=== PATIENT | male | born 1960 | race Caucasian/White ===

== ENCOUNTER 2020-09-18 07:51 | Inpatient (IN) ==
[2020-09-18] MEDS ORDERED: methylPREDNISolone SOD SUCC 125 MG/2 ML VIAL IV ONE (08:31)
--- NOTE | 2020-09-18 08:42 | Emergency Department Note ---
SOB HPI General Chief Complaint: Shortness of Breath/Dyspnea Stated Complaint: SOB, tongue swelling Time Seen by Provider: 09/18/20 08:10 Source: patient Mode of arrival: wheelchair Limitations: no limitations History of Present Illness HPI Narrative: Narrative: 60-year-old male presents to the emergency department complaining of difficulty breathing. Patient states that he has had swelling of his lips and tongue from lisinopril which began greater than 1 month ago. He stopped the lisinopril greater than 1 month ago. He has been followed by his physician as well as by ear nose and throat because of the atypical nature of this edema. This morning he was unable to swallow. His breathing became very labored. He became worse and he developed wheezing. He presented to the emergency department. He rated his discomfort as a 10 out of 10, and stated it was constant. Nothing made it better or worse. It was associated with the swelling that he is had but now it was worse. There was no radiation. There was associated wheezing. Patient has diabetes, hypertension, antidepressants. His last p.o. intake was at 1900. Related Data Home Medications Medication Instructions Recorded Confirmed citalopram 20 mg PO DAILY 09/18/20 09/18/20 insulin aspart U-100 [Novolog See Protocol SUBCUT ACHS 09/18/20 09/18/20 U-100 Insulin aspart] insulin glargine [Lantus Solostar 35 unit SUBCUT DAILY 09/18/20 09/18/20 U-100 Insulin] omeprazole 40 mg PO DAILY 09/18/20 09/18/20 Allergies Allergy/AdvReac Type Severity Reaction Status Date / Time lisinopril AdvReac Severe Swelling Verified 09/18/20 07:52 Review of Systems ROS ROS Narrative: Narrative: Constitutional: Denies fever Eyes: Denies eye pain ENT ED: Reports throat pain (With swallowing.) and dysphagia; Denies ear pain and rhinorrhea Cardiovascular: Denies chest pain Respiratory: Reports shortness of breath Gastrointestinal: Denies abdominal pain, nausea and vomiting Genitourinary: Denies dysuria Musculoskeletal: Denies back pain Integumentary: Denies rash Neurological: Denies headache Psychiatric: Reports depression Hematological/Lymphatic: Denies easy bleeding Allergic/Immunologic: Reports facial swelling PFSH Narrative Patient History Narrative: Narrative: Medical/Surgical/Family History All Active Problems Compromised airway (Acute) Depression (Acute) Essential (primary) hypertension (Acute) Type 1 diabetes mellitus (Acute) 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) (Acute) Social History Smoking Status: Never smoker Exam Narrative Narrative: Narrative: General Limitations: no limitations General appearance: Present alert, anxious and in distress Head Head: Present atraumatic and normocephalic Eye Eye: Present normal appearance and EOMI ENT ENT: Present mucous membranes moist and other (Some edema of the tongue and lips.) Neck Neck: Present full ROM and trachea midline Respiratory Respiratory: Present normal lung sounds bilaterally and respiratory distress; Absent wheezes (At the time I evaluated him.) Cardiovascular Cardiovascular: Present regular rate and normal rhythm Adbominal Abdominal: Present soft; Absent tenderness Extremities Extremities: Present full ROM Neurological Neurological: Present alert and oriented X3 Psychiatric Psychiatric: Present normal affect and normal mood Skin Skin: Present warm (WNL) and dry Course Consultations Consultation #1: Consulted anesthesiology. He came to the bedside and evaluated the patient. Did not feel the patient required intubation at this time. Time: 08:10 Consultation #2: Consult to the hospitalist for admission.10:10 Hospitalist called back. we discussed. pt. will be brought in house on observation. Time: 08:42 Vital Signs Vital signs: Vital Signs Temperature 97.4 F 09/18/20 07:53 Pulse Rate 96 H 09/18/20 07:53 Respiratory Rate 18 09/18/20 07:53 Blood Pressure 156/85 09/18/20 07:53 Pulse Oximetry (%) 96 09/18/20 07:53 Temperature 97.3 F 09/18/20 16:00 Pulse Rate 70 09/18/20 14:14 Respiratory Rate 16 09/18/20 16:00 Blood Pressure 138/72 09/18/20 16:00 Pulse Oximetry (%) 94 09/18/20 16:00 [facility] Narrative Medical decision making narrative: Narrative: 60-year-old male presents emerged department describing a condition like angioedema but it having been present for 1 month and then this morning getting substantially worse causing airway compromise. Differential diagnosis includes DAVE inhibitor induced angioedema, hereditary angioedema, allergic reaction, pending respiratory failure, other. Patient had a Mallampati score of 4 though with the tongue blade examination of the mouth I was able to see the uvula and posterior pharynx.. Uvula was not edematous. I considered intubation but the patient's oxygenation was adequate by pulse ox and his respiratory ate was acceptable. He managed his secretions without difficulty. I contacted anesthesia who graciously came down to the emerge department to evaluate the patient personally. For a potentially very challenging intubation it is better to have multiple people assess in the best person try the initial intubation. I discussed with the pharmacist new medications that are used for angioedema. None of them are available in this hospital and they require special order. We also discussed the atypical nature of this angioedema leading to questions of whether that was truly the cause. In discussion with anesthesiologist it was felt safest for the patient for the patient to be admitted to the hospital and kept here in detail the course of his airway compromise elucidated itself. I contacted the hospitalist who graciously admitted the patient for further care and evaluation. His blood sugar was noted to be high at 220 and the hospitalist will manage that. CBC and Chem-7 were otherwise unremarkable. Chest x-ray revealed platelike atelectasis but no acute infiltrates. Lab Data Result diagrams: 09/18/20 08:50 09/18/20 08:50 Labs: Lab Results 09/18/20 09/18/20 09/18/20 Range/Units 08:50 08:50 08:50 WBC 6.6 (4.5-11.0) K/mcL RBC 4.86 (4.50-5.90) M/mcL Hgb 14.5 (13.5-16.5) g/dL Hct 42.2 (41.0-55.0) % MCV 86.8 (80.0-100.0) fL MCH 29.8 (26.0-34.0) pg MCHC 34.4 (31.0-36.0) g/dL RDW 12.8 (11.5-14.5) % Plt Count 242 (140-440) K/mcL MPV 10.1 (7.4-10.4) fL Neut % (Auto) 64.7 (38.0-78.0) % Lymph % (Auto) 24.0 (15.0-49.0) % [place] % (Auto) 7.4 (1.0-12.0) % Eos % (Auto) 3.3 (0.0-7.0) % Baso % (Auto) 0.6 (0.0-2.0) % Lymph # (Auto) 1.59 (1.50-4.80) K/mcL [place] # (Auto) 0.49 (0.10-0.90) K/mcL Eos # (Auto) 0.22 (0.00-0.70) K/mcL Baso # (Auto) 0.04 (0.00-0.20) K/mcL Absolute Neutrophils 4.28 (1.80-8.00) K/mcL Sodium 138 (133-145) mmol/L Potassium 4.7 (3.3-5.1) mmol/L Chloride 104 (96-108) mmol/L Carbon Dioxide 23 (22-30) mmol/L Anion Gap 11.0 (8.0-16.0) BUN 8 (8-23) mg/dL Creatinine 1.0 (0.7-1.2) mg/dL GFR Calculation 81 Glucose 220 H (70-105) mg/dL Hemoglobin A1c 6.6 H (4.0-6.0) % Hgb Estim Average Glucose 143 mg/dL Calcium 9.2 (8.6-10.4) mg/dL Total Bilirubin 0.5 (0.1-1.0) mg/dL AST 24 (<40) U/L ALT 19 (<40) U/L Alkaline Phosphatase 113 (39-117) U/L Total Protein 6.9 (5.9-8.4) gm/dL Albumin 3.5 (3.2-5.2) gm/dL Globulin 3.4 (2.2-3.7) gm/dL Albumin/Globulin Ratio 1.0 (1.0-2.3) ED POC Tests ED POC Tests: BRANDO - SARS Antigen Negative CC TIME Critical Care Time Critical Care Time: Yes Total Critical Care Time: 40 Attestation: The patient had potential critical airway compromise which would necessitate emergent intubation under difficult conditions. Discharge Plan Patient/Caregiver Discharge Instructions Pt seen by BILLING CLINICIAN/PA only: No Clinical Impression: Compromised airway Patient Disposition: Xfer As Inpt ([facility]) Condition: Serious Discharge Date/Time: 09/18/20 12:09
--- NOTE | 2020-09-18 08:45 | XRay Report ---
INDICATION: Chest pain TECHNIQUE: AP portable chest x-ray COMPARISON: None FINDINGS: Lungs:Linear densities at both lung bases consistent with atelectasis or scarring. No parenchymal consolidation Heart, vascular:No significant cardiomegaly. Pulmonary vascularity is normal. No pulmonary edema or pulmonary congestion Mediastinum, santos:No mediastinal widening. No hilar mass Pleura:No pleural fluid. No pleural-based mass or calcification Skeletal:Negative. IMPRESSION: 1. Findings consistent with bibasilar atelectasis 2. Otherwise negative Interpreted and Authenticated by: Patrick Lawrence 09/18/20
[2020-09-18 09:20] LABS: Basophils # (Auto) 0.04 K/mcL (0.00-0.20); Basophils % (Auto) 0.6 % (0.0-2.0); Eosinophils # (Auto) 0.22 K/mcL (0.00-0.70); Eosinophils % (Auto) 3.3 % (0.0-7.0); Hematocrit 42.2 % (41.0-55.0); Hemoglobin 14.5 g/dL (13.5-16.5); Lymphocytes # (Auto) 1.59 K/mcL (1.50-4.80); Mean Cell Volume 86.8 fL (80.0-100.0); Mean Corpuscular HGB Conc 34.4 g/dL (31.0-36.0); Mean Platelet Volume 10.1 fL (7.4-10.4); Monocytes # (Auto) 0.49 K/mcL (0.10-0.90); Monocytes % (Auto) 7.4 % (1.0-12.0); Neutrophils % (Auto) 64.7 % (38.0-78.0); Platelet Count 242 K/mcL (140-440); RBC 4.86 M/mcL (4.50-5.90); Red Cell Distribution Width 12.8 % (11.5-14.5); WBC 6.6 K/mcL (4.5-11.0)
[2020-09-18 09:45] LABS: ALT/SGPT 19 U/L (<40); AST/SGOT 24 U/L (<40); Albumin 3.5 gm/dL (3.2-5.2); Alkaline Phosphatase 113 U/L (39-117); Bilirubin,Total 0.5 mg/dL (0.1-1.0); Blood Urea Nitrogen 8 mg/dL (8-23); Calcium 9.2 mg/dL (8.6-10.4); Carbon Dioxide 23 mmol/L (22-30); Chloride 104 mmol/L (96-108); Globulin 3.4 gm/dL (2.2-3.7); Glomerular Filtration Rate 81; Glucose 220 mg/dL (70-105)
--- NOTE | 2020-09-18 10:43 | Internal Med History&Physical ---
HPI History of Present Illness Patient information: Note initiated : 09/18/20 at 10:35 am Service Date, if different from initiated Date: [] Patient: Jose L Carter a 60 y/o M admitted on for SOB, tongue swelling. Chief Complaint: [Angioedema from Lisinopril] History of present illness: Mr. Carter is a 60 year old M history of type 1 diabetes mellitus, essential hypertension, depressions, presenting with 1 day history of difficulty breathing, lips swelling, and difficulty swallowing. Patient was taking lisinopril for hypertension and he was being diagnosed with angioedema from lisinopril about a month ago. He has not been taking lisinopril or any other DAVE inhibitor ever since. Today when he woke up from sleep he noticed increased difficulty breathing, lip swelling, and difficulty swallowing. As a result, he decided to come to our ED for further evaluation and treatments. Vital signs upon ER presentations were completely normal including oxygen saturation and rate of breathing. Labs, pea-sized slightly elevated blood glucose to 220, were also largely unremarkable. Physical examinations remarkable for airway examination of Mallampati class IV. No drooling noticed. Lung examinations shows clear breath sound in all lung schultz. Mental status intact. Constitutional Constitutional: Absent chills, excessive sweating, fatigue, fever(s) and weakness EENT Eyes: Absent blurry vision, change in vision, loss of vision and other visual disturbances Ears: Absent decreased hearing and tinnitus Nose, mouth and throat: Present tongue swelling; Absent abnormal hearing, dry mouth, headache(s), nasal congestion and sore throat Additional comments: lips swelling Dysphagia Cardiovascular Cardiovascular: Absent chest pain, chest pain at rest, edema, irregular heart rhythm and palpatations Respiratory Respiratory: Present dyspnea; Absent cough, wheezing and stridor Gastrointestinal Gastrointestinal: Absent abdominal pain, constipation, diarrhea, nausea and vomiting Musculoskeletal Musculoskeletal: Absent back pain, deformity, limited range of motion, muscle cramps, muscle weakness and numbness Integumentary Integumentary: Absent lesions, rash and wounds Neurological Neurological: Absent focal weakness, headache(s) and numbness Psychiatric Psychiatric: Absent anxiety, depression and hallucinations PFSH PFSH All Active Problems (Updated 09/18/20 @ 10:41 by Uche Worrell MD) Depression (Acute) Essential (primary) hypertension (Acute) Type 1 diabetes mellitus (Acute) 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) (Acute) MEDS/ALLERGIES Home Medications and Allergies Allergies Allergy/AdvReac Type Severity Reaction Status Date / Time lisinopril AdvReac Severe Swelling Verified 09/18/20 07:52 EXAM Constitutional Vitals: Temp Pulse Resp BP Pulse Ox 36.3 C 70 16 117/66 93 09/18/20 07:53 09/18/20 10:21 09/18/20 08:10 09/18/20 10:01 09/18/20 10:21 General appearance: cooperative and no acute distress Head Head exam: Present atraumatic and normocephalic Eye Eye exam: Present EOMI and PERRL ENT ENT exam: Present mucous membranes moist and normal external ear exam; Absent normal exam Additional comments: Mallampati class IV airway. Slightly swollen lips. Neck Neck exam: Present normal inspection; Absent lymphadenopathy, tenderness and thyromegaly Respiratory Respiratory exam: Absent accessory muscle use, respiratory distress and wheezes Cardiovascular Cardiovascular exam: Present normal rate and rhythm; Absent JVD GI/Abdominal GI/Abdominal exam: Present normal bowel sounds and soft; Absent organomegaly and tenderness Rectal Rectal exam: Present deferred Extremities Exam Extremities exam: Present full ROM, normal capillary refill and normal inspection; Absent tenderness Neurological Exam Neurological exam: Present alert, CN II-XII intact and oriented X3; Absent motor sensory deficit Psychiatric Psychiatric exam: Present normal affect and normal mood; Absent anxious and depressed Skin Skin exam: Present dry and intact DATA Data Completed and Pending Labs: Labs from last 24 hours 09/18/20 09/18/20 08:50 08:50 WBC 6.6 RBC 4.86 Hgb 14.5 Hct 42.2 MCV 86.8 MCH 29.8 MCHC 34.4 RDW 12.8 Plt Count 242 MPV 10.1 Neut % (Auto) 64.7 Lymph % (Auto) 24.0 [place] % (Auto) 7.4 Eos % (Auto) 3.3 Baso % (Auto) 0.6 Lymph # (Auto) 1.59 [place] # (Auto) 0.49 Eos # (Auto) 0.22 Baso # (Auto) 0.04 Absolute Neutrophils 4.28 Sodium 138 Potassium 4.7 Chloride 104 Carbon Dioxide 23 Anion Gap 11.0 BUN 8 Creatinine 1.0 GFR Calculation 81 Glucose 220 H Calcium 9.2 Total Bilirubin 0.5 AST 24 ALT 19 Alkaline Phosphatase 113 Total Protein 6.9 Albumin 3.5 Globulin 3.4 Albumin/Globulin Ratio 1.0 A/P Assessment and plan (1) Angioedema of intestine due to angiotensin converting enzyme inhibitor (DAVE- I): Status: Acute (2) Type 1 diabetes mellitus: Status: Acute (3) Essential (primary) hypertension: Status: Acute (4) Depression: Status: Acute Narrative A/P Narrative: Assessment and plans: 1. Observation med surg FFP Solu-medrol 125mg IV q6hr Benadryl 100mg IV q6hr No DAVE-i 2. T1DM: HgA1c Lantus Medium dose insulin Lispro AC HS Accu Chek AC HS Hypoglycemia protocol Diabetic diet 3. Essential HTN: Currently normotensive No DAVE-i Consider other class of antihypertensives such as diuretics or calcium channel blockers if needed 4. Depression: Continue home regimen of antidepressants GI: not currently indicated DVT ppx: Lovenox Code status: Full Prognosis: guarded Disposition: observation med surg Time Spent With Patient Time: Total time spent is greater than 50% in coordination of care (as documented) at patient's floor/unit and/or counseling patient: Total time spent with greater than 50% in coordination of care (as documented) at patient's floor/unit and/or counseling patient:: 15 - 24 minutes
[2020-09-18] MEDS ORDERED: IOPAMIDOL 100 ML BOTTLE IV ONE (12:10)
[2020-09-18] MEDS ORDERED: DEXTROSE 50% 50 ML VIAL IV PRN (14:14)
[2020-09-18] MEDS ORDERED: ZOLPIDEM 5 MG TABLET PO PRN (14:14)
[2020-09-18] MEDS ORDERED: 0.9 % SODIUM CHLORIDE 250 ML IV SCH (14:14)
[2020-09-18] MEDS ORDERED: diphenhydrAMINE 50 MG/ML VIAL IV PRN (14:14)
[2020-09-18] MEDS ORDERED: ONDANSETRON 4 MG/2 ML VIAL IV PRN (14:14)
[2020-09-18] MEDS ORDERED: ACETAMINOPHEN 325 MG TABLET PO PRN (14:14)
[2020-09-18] MEDS ORDERED: DEXTROSE 31 GM ORAL.SUSP PO PRN (14:14)
[2020-09-18] MEDS: INSULIN LISPRO 1 UNIT/0.01 ML UNIT SQ SCH ×3 (14:54→21:31)
[2020-09-18] MEDS: 0.9 % SODIUM CHLORIDE 10 ML SYRINGE IV SCH ×2 (14:55→21:22)
[2020-09-18 15:05] LABS: Hemoglobin A1C 6.6 % Hgb (4.0-6.0)
[2020-09-18] MEDS: methylPREDNISolone SOD SUCC 125 MG/2 ML VIAL IV SCH ×2 (15:10→21:31)
[2020-09-18] MEDS ORDERED: SENNOSIDES 1 TABLET PO SCH (21:00)
[2020-09-18] MEDS ORDERED: DOCUSATE SODIUM 100 MG CAPSULE PO SCH (21:00)
[2020-09-18] MEDS ORDERED: NON FORMULARY MEDICATION 1 DOSE MISCELL (Insulin Glargine [Lantus Solostar U-100 Insulin] SUB-Q SCH (21:00)
[2020-09-19] MEDS: methylPREDNISolone SOD SUCC 125 MG/2 ML VIAL IV SCH (05:46)
[2020-09-19] MEDS: 0.9 % SODIUM CHLORIDE 10 ML SYRINGE IV SCH ×3 (05:47→20:33)
[2020-09-19] MEDS: INSULIN LISPRO 1 UNIT/0.01 ML UNIT SQ SCH ×4 (07:22→20:32)
[2020-09-19] MEDS ORDERED: OMEPRAZOLE 20 MG CAPSULE PO SCH (07:30)
[2020-09-19] MEDS ORDERED: DEXTROSE 31 GM ORAL.SUSP PO PRN ×3 (08:00→11:02)
[2020-09-19] MEDS ORDERED: diphenhydrAMINE 50 MG/ML VIAL IV SCH ×2 (08:00→11:02)
[2020-09-19] MEDS ORDERED: DEXTROSE 50% 50 ML VIAL IV PRN ×2 (08:00→08:20)
[2020-09-19] MEDS ORDERED: ONDANSETRON 4 MG/2 ML VIAL IV PRN (08:00)
[2020-09-19] MEDS ORDERED: LORazepam 2 MG/ML VIAL IV PRN ×2 (08:00→11:52)
[2020-09-19] MEDS ORDERED: ACETAMINOPHEN 325 MG TABLET PO PRN ×2 (08:00→11:02)
[2020-09-19] MEDS ORDERED: LORazepam 2 MG/ML VIAL IV ONE (08:00)
--- NOTE | 2020-09-19 08:54 | Cat Scan Report ---
INDICATION: Concern for upper airway obstruction/edema. COMPARISON: None TECHNIQUE: Axial contrast enhanced images through the neck. Sagittally and coronally reformatted images. 80ml Isovue 370 injected intravenously. FINDINGS: Vascular:Common carotid arteries and internal carotid arteries are patent bilaterally. Internal jugular veins are patent Lymphatic:No pathologic lymphadenopathy. Internal jugular chains are negative. No supraclavicular adenopathy Mucosa:No mucosal mass. Glottis and epiglottis are normal. There is no subglottic edema Nasopharynx, oropharynx, hypopharynx are negative. No peritonsillar mass or evidence for abscess Salivary glands:Parotid glands and submandibular glands are negative bilaterally. No focal mass. No evidence for sialoadenitis. Soft Tissue:No solid or cystic soft tissue mass. No abscess. No focal abnormality Lung Apices:No pulmonary parenchymal density. No pneumothorax. No focal abnormality. Thyroid:Negative. No detectable nodule Paranasal sinuses:There is mucosal thickening in the inferior maxillary sinuses bilaterally. No discrete mass. There is no air-fluid level Musculoskeletal:Negative cervical spine. No fracture. No lytic lesion. IMPRESSION: Negative CT scan of the soft tissues of the neck. The exam was performed using radiation dose optimization techniques including, but not limited to, automated exposure control, adjustment of the mA and/or kV according to patient size and use of iterative reconstruction technique. Interpreted and Authenticated by: Patrick Lawrence 09/19/20
[2020-09-19] MEDS ORDERED: DOCUSATE SODIUM 100 MG CAPSULE PO SCH (09:00)
[2020-09-19] MEDS ORDERED: CITALOPRAM 20 MG TABLET PO SCH ×2 (09:00)
[2020-09-19] MEDS ORDERED: INSULIN GLARGINE, HUMAN 1 UNIT/0.01 ML SQ SCH ×5 (09:00→21:00)
[2020-09-19] MEDS ORDERED: ENOXAPARIN 40 MG/0.4 ML SYRINGE SQ SCH ×2 (09:00)
[2020-09-19] MEDS ORDERED: 0.9 % SODIUM CHLORIDE 1,000 ML IV ONE (09:53)
[2020-09-19] MEDS ORDERED: LIDOCAINE HCL/PF 100 MG/5 ML SYRINGE IV ONE (10:00)
[2020-09-19] MEDS ORDERED: PHENYLephrine 1 MG/10 ML SYRINGE (ANEST) ONE (10:00)
[2020-09-19] MEDS ORDERED: KETAMINE 10 MG/ML ML IV ONE (10:00)
[2020-09-19] MEDS ORDERED: PROPOFOL 200 MG/20 ML VIAL IV ONE (10:00)
[2020-09-19] MEDS ORDERED: ROCURONIUM 10 MG/ML ML IV ONE (10:00)
[2020-09-19] MEDS ORDERED: KETAMINE 50 MG/ML Syringe (ANEST) ONE (10:00)
[2020-09-19] MEDS ORDERED: 0.9 % SODIUM CHLORIDE 250 ML IV SCH ×3 (10:15→11:02)
[2020-09-19] MEDS ORDERED: DEXMEDETOMIDINE 400 MCG in PREMIX 1 BAG IV SCH ×2 (10:15→11:02)
[2020-09-19] MEDS ORDERED: fentaNYL 100 MCG/2 ML VIAL IV PRN (10:20)
[2020-09-19] MEDS ORDERED: fentaNYL 100 MCG/2 ML VIAL IV SCH (10:30)
--- NOTE | 2020-09-19 10:59 | XRay Report ---
INDICATION: Verify endotracheal tube and nasogastric placement TECHNIQUE: AP portable semiupright chest x-ray COMPARISON: None FINDINGS:Endotracheal tube tip 5 cm above the rhonda. There is an endotracheal tube with its tip in the stomach Lungs:Bibasilar pulmonary parenchymal density. Appearance is most consistent with atelectasis. Mild pneumonia, especially at the left lung bases are stable. Heart, vascular:No significant cardiomegaly. Pulmonary vascularity is normal. No pulmonary edema or pulmonary congestion Mediastinum, santos:No mediastinal widening. No hilar mass Pleura:Blunting of left costophrenic angle consistent with small left pleural effusion Skeletal:Negative. IMPRESSION: 1. Endotracheal tube and esophagogastric tube is described above 2. Mild bibasilar parenchymal density 3. Blunting of left costophrenic angle Interpreted and Authenticated by: Patrick Lawrence 09/19/20
[2020-09-19] MEDS ORDERED: NOREPINEPHRINE BITARTRATE 8 MG in 0.9 % SODIUM CHLORIDE 242 ML IV PRN (11:00)
[2020-09-19] MEDS ORDERED: IOPAMIDOL 100 ML BOTTLE IV ONE ×2 (11:02→14:04)
[2020-09-19 11:17] LABS: proBNP 122.3 pg/mL (<125.0)
[2020-09-19] MEDS ORDERED: INSULIN LISPRO 1 UNIT/0.01 ML UNIT SQ SCH ×2 (11:30)
[2020-09-19 11:43] LABS: Basophils # (Auto) 0.02 K/mcL (0.00-0.30); Basophils % (Auto) 0.1 % (0.0-2.0); Eosinophils # (Auto) 0 K/mcL (0.00-0.70); Eosinophils % (Auto) 0 % (0.0-7.0); Hematocrit 44.4 % (40.1-51.0); Hemoglobin 15.1 g/dL (13.7-17.5); Lymphocytes # (Auto) 1.32 K/mcL (1.50-4.80); Lymphocytes % (Auto) 8.2 % (15.5-49.0); Mean Cell Volume 88.1 fL (80.0-100.0); Mean Platelet Volume 10.4 fL (7.4-10.4); Monocytes # (Auto) 0.61 K/mcL (0.10-0.90); Monocytes % (Auto) 3.8 % (1.0-12.0); Neutrophils % (Auto) 87.9 % (38.0-78.0); Platelet Count 293 K/mcL (140-440); RBC 5.04 M/mcL (4.63-6.08); Red Cell Distribution Width 12.8 % (11.5-14.5); WBC 16.1 K/mcL (4.5-11.0)
[2020-09-19 11:47] LABS: ALT/SGPT 21 U/L (<40); AST/SGOT 22 U/L (<40); Albumin/Globulin Ratio 1.1 (1.0-2.3); Alkaline Phosphatase 122 U/L (39-117); Bilirubin,Total 0.7 mg/dL (0.1-1.0); Blood Urea Nitrogen 23 mg/dL (8-23); Calcium 9.7 mg/dL (8.6-10.4); Carbon Dioxide 15 mmol/L (22-30); Chloride 99 mmol/L (96-108); Globulin 3.6 gm/dL (2.2-3.7); Glomerular Filtration Rate 65; Glucose 347 mg/dL (70-105)
[2020-09-19] MEDS ORDERED: LABETALOL 5 MG/ML ML IV PRN (11:47)
[2020-09-19] MEDS ORDERED: fentaNYL 100 MCG/2 ML VIAL IV ONE (12:33)
[2020-09-19] MEDS ORDERED: methylPREDNISolone SOD SUCC 125 MG/2 ML VIAL IV SCH ×3 (14:00)
[2020-09-19] MEDS ORDERED: 0.9 % SODIUM CHLORIDE 10 ML SYRINGE IV SCH (14:00)
--- NOTE | 2020-09-19 14:16 | Cat Scan Report ---
INDICATION: Acute respiratory failure COMPARISON: Chest x-ray dated 09/19/2020 TECHNIQUE: Axial images obtained through the chest. 80ml Isovue 370 injected intravenously, and scanning was performed during pulmonary arterial phase. Sagittally and coronally reformatted images were obtained. MIP reformatted images. FINDINGS: There is an endotracheal tube in the trachea. There is an esophagogastric catheter in the stomach Lungs:Bilateral lower lobe parenchymal consolidation. There are air bronchograms. Findings may be due to benign volume loss but pneumonia is possible. Mediastinum, vascular:Main pulmonary artery, right pulmonary artery, left pulmonary artery are negative. No intraluminal filling defects. No lobar, segmental, or subsegmental emboli. Thoracic aorta is negative. No aneurysmal dilatation No pathologic mediastinal or hilar adenopathy Heart:No cardiomegaly. No pericardial effusion. There is mild reflux of contrast material into the inferior vena cava Pleura:No significant pleural effusion. No pleural mass or calcification Axilla, supraclavicular regions, chest wall:No pathologic axillary or supraclavicular adenopathy. Musculoskeletal:Negative thoracic spine. No compression fracture. No lytic lesion. No rib or sternal lesions Upper Abdomen:Incidental note is made of a 10 mm right adrenal nodule. No acute abnormalities IMPRESSION: 1. Negative pulmonary CTA 2. Bilateral lower lobe consolidation. Findings may be due to benign volume loss but pneumonia is possible The exam was performed using radiation dose optimization techniques including, but not limited to, automated exposure control, adjustment of the mA and/or kV according to patient size and use of iterative reconstruction technique. Interpreted and Authenticated by: Patrick Lawrence 09/19/20
--- NOTE | 2020-09-19 14:36 | Internal Med Progress Note ---
SUBJECTIVE Subjective Patient information: Note initiated : 09/19/20 at 2:29 pm Service Date, if different from initiated Date: [] Patient: Jose L Carter a 60 y/o M admitted on 09/19/20 for SOB, tongue swelling. Chief Complaint: [] Interval history: History of present illness: Mr. Carter is a 60 year old M history of type 1 diabetes mellitus, essential hypertension, depressions, presenting with 1 day history of difficulty breathing, lips swelling, and difficulty swallowing. Patient was taking lisinopril for hypertension and he was being diagnosed with angioedema from lisinopril about a month ago. He has not been taking lisinopril or any other DAVE inhibitor ever since. Today when he woke up from sleep he noticed increased difficulty breathing, lip swelling, and difficulty swallowing. As a result, he decided to come to our ED for further evaluation and treatments. Vital signs upon ER presentations were completely normal including oxygen saturation and rate of breathing. Labs, pea-sized slightly elevated blood glucose to 220, were also largely unremarkable. Physical examinations remarkable for airway examination of Mallampati class IV. No drooling noticed. Lung examinations shows clear breath sound in all lung schultz. Mental status intact. 09/19: CT neck with contrast was negative. The patient later developed progressive worsening of respiratory status this morning requiring an intubation by anaesthesia. Anaesthesia remarked that there was no evidence of airway edema noted during intubation, a GlideScope was used for intubation. Post intubation ABG showed severe respiratory acidosis that improved on repeat ABG. Further workup with EKG-sinus tachycardia, troponin-normal, BNP-normal. D-dimer mildly elevated. CTA chest negative for PE but showed bilateral lower lobe consolidations of uncertain etiology but likely benign voluem loss vs pneumonia. Ceftriaxone and Azithromycin started, check procalcitonin and CRP. TTE ordered. Review of systems: shortness of breath Physical Exam Head: Atraumatic, normal inspection. Eyes: normal appearance, no scleral icterus. Neck: full ROM Respiratory: severe respiratory distress. Cardiovascular: tachycardia GI/Abdominal: soft, nontender, no guarding. Extremities: full range of motion, nontender. Neurological: CN II-XII intact, intact motor, intact sensation. Psychiatric: severe anxiety Skin: warm, normal color Constitutional Vitals: Vital Signs Temp Pulse Resp BP Pulse Ox 98.5 F 117 H 20 145/92 96 09/19/20 12:01 09/19/20 12:01 09/19/20 14:00 09/19/20 12:01 09/19/20 14:00 Period Temp Pulse Resp BP Sys/Sewell Pulse Ox Last 24 Hr 97.0 F-98.5 F 75-130 8-31 87-194/64-118 73-98 Intake and Output 09/19/20 09/19/20 09/19/20 05:59 13:59 21:59 Intake Total 240 187 Output Total 620 155 Balance 240 -433 -155 Intake & Output: Intake & Output 09/19/20 09/19/20 09/19/20 05:59 13:59 21:59 Intake Total 240 187 Output Total 620 155 Balance 240 -433 -155 Intake: IV 187 Sodium Chloride 0.9% 1,000 ml @ 158 Wide Open IV BOLUS ONE Rx#: [id number] Precedex 400 Mcg/100 ml 29 Dextrose 400 Mcg In Premix 1 Bag @ 0.2 MCG/KG/HR 4.992 mls/ hr IV .Q20H2M JOY Rx#:[id number] Oral 240 Output: Urine Catheter Amount 620 155 Other: Urine Appearance Clear Clear Urine Color Bright Yellow Bright Yellow # Voids 1 OBJ DATA Labs CBC & Chem 7: 09/19/20 10:21 09/19/20 10:21 Labs: Abnormal Lab Results 09/19/20 09/19/20 09/19/20 10:21 10:21 10:21 WBC 16.1 H Neut % (Auto) 87.9 H Lymph % (Auto) 8.2 L Lymph # (Auto) 1.32 L Absolute Neutrophils 14.13 H D-Dimer 0.68 H Carbon Dioxide 15 L Anion Gap 21.0 H Glucose 347 H Hemoglobin A1c Alkaline Phosphatase 122 H 09/18/20 09/18/20 08:50 08:50 WBC Neut % (Auto) Lymph % (Auto) Lymph # (Auto) Absolute Neutrophils D-Dimer Carbon Dioxide Anion Gap Glucose 220 H Hemoglobin A1c 6.6 H Alkaline Phosphatase Meds: Medications Acetaminophen (Acetaminophen 325 Mg Tablet) 650 mg PO Q6HP PRN; Protocol PRN Reason: Per Pain Protocol/Fever > 101 Citalopram Hydrobromide (Citalopram 20 Mg Tablet) 20 mg PO DAILY JOY Dextrose (Dextrose 50% 50 Ml Vial) 0 ml IV UD PRN PRN Reason: Hypoglycemia Diagnostic Test (Pha) (Accu-Chek 1 Each Strip) 1 each FS [facility] Last Admin: 09/19/20 12:21 Dose: 1 each Documented by: Diphenhydramine HCl (Diphenhydramine 50 Mg/Ml Vial) 25 mg IV Q6HP [facility] Docusate Sodium (Docusate Sodium 100 Mg Capsule) 100 mg PO BID [facility] Enoxaparin Sodium (Enoxaparin 40 Mg/0.4 Ml Syringe) 40 mg SQ DAILY [facility] Fentanyl (Fentanyl 100 Mcg/2 Ml Vial) 25 mcg IV Q30MIN PRN; Protocol PRN Reason: pain Glucose (Dextrose 31 Gm Oral.Susp) 15 gm PO PRN PRN PRN Reason: Hypoglycemia Norepinephrine Bitartrate 8 mg (/ Sodium Chloride) 250 mls @ 18.75 mls/hr IV Q14H PRN; Protocol PRN Reason: TITRATE TO KEEP MAP > 65 Dexmedetomidine HCl 400 mcg/ (Premix) 100 mls @ 4.992 mls/hr IV .Q20H2M [facility]; Protocol Insulin Glargine (Insulin Glargine, Human 1 Unit/0.01 Ml) 40 unit SQ DAILY [facility] Insulin Human Lispro (Insulin Lispro 1 Unit/0.01 Ml Unit) 0 unit SQ [facility]; Protocol Last Admin: 09/19/20 12:21 Dose: 12 unit Documented by: Labetalol HCl (Labetalol 5 Mg/Ml Ml) 10 mg IV Q10M PRN PRN Reason: SBP>190 Lorazepam (Lorazepam 2 Mg/Ml Vial) 0.5 mg IV Q2HP PRN PRN Reason: ANXIETY/SEDATION Last Admin: 09/19/20 12:15 Dose: 0.5 mg Documented by: Methylprednisolone Sodium Succinate (Methylprednisolone Sod Succ 125 Mg/2 Ml Vial) 60 mg IV Q8H [facility] Omeprazole (Omeprazole 20 Mg Capsule) 40 mg PO ACB JOY Ondansetron HCl (Ondansetron 4 Mg/2 Ml Vial) 4 mg IV Q6HP PRN PRN Reason: Nausea And Vomiting Senna (Sennosides 1 Tablet) 2 tab PO HS JOY Sodium Chloride (0.9 % Sodium Chloride 10 Ml Syringe) 10 ml IV Q8 [facility] Zolpidem Tartrate (Zolpidem 5 Mg Tablet) 5 mg PO HSP PRN PRN Reason: Insomnia A/P Narrative A/P Narrative: Assessment: 60 year old M history of type 1 diabetes mellitus, essential hypertension, depressions, presented with progressively worsening difficulty breathing, lips swelling, and difficulty swallowing. Initially felt to be angioedema as the patient was taking lisinopril but had not taken it for about a month. The patient was was admitted on 09/18 and started on IV steroids, benadryl and given FFP but continued to worsen and requiring intubation on 09/19. No evidence of airway edema noted by anaesthesia during intubation with a GlideScope. CT neck w/ contrast was also negative for airway edema or masses compressing on upper airway. CTA chest negative for PE, bilateral lower lobe consolidations of uncertain etiology. ABG showed respiratory acidosis. #Hypercapnic respiratory failure #Hypoxic respiratory failure #Bilateral lower lobe consolidations-atelectasis vs pneumonia #Concern for possible neuromuscular disease #Essential hypertension #Type 1 diabetes mellitus #Depression Plan -Mechanical ventilation, precedex, Fentanyl, Ativan as needed. -Daily ABGs, labs, and chest xrays while on mechanical ventilation. -Myasthenia Gravis panel ordered. -Start Ceftriaxone and Azithromycin. -Check procalcitonin and CRP. -NG tube placed w/ nutrition consult. -Follow up on pending TTE. -Discontinue Solumedrol and Benadryl. -Levophed as needed. -school bus monitor. -Consider arterial line. -Consider transfer to higher level of care. -DVT ppx: Lovenox -GI ppx: -Code status: Clam Bed Worker Spent With Patient Time: Total time spent is greater than 50% in coordination of care (as documented) at patient's floor/unit and/or counseling patient: QUALITY Stroke Symptom Onset Unknown: No VTE Deep Vein Thrombosis/Pulmonary Embolism Present on Admission: No
[2020-09-19] MEDS: DEXMEDETOMIDINE 400 MCG in PREMIX 1 BAG IV SCH (14:40)
[2020-09-19] MEDS: NOREPINEPHRINE BITARTRATE 8 MG in 0.9 % SODIUM CHLORIDE 242 ML IV PRN (14:45)
[2020-09-19] MEDS: 0.9 % SODIUM CHLORIDE 250 ML IV SCH (15:00)
[2020-09-19] MEDS: cefTRIAXone 2 GM in DEXTROSE 5% IN WATER 50 ML IV SCH (15:08)
[2020-09-19] MEDS: AZITHROMYCIN 500 MG in DEXTROSE 5% IN WATER 250 ML IV SCH (15:16)
[2020-09-19] MEDS: fentaNYL 100 MCG/2 ML VIAL IV PRN ×3 (15:32→23:41)
[2020-09-19] MEDS: IPRATROPIUM/ALBUTEROL 3 ML AMPUL.NEB NEB ONE ×2 (16:33→16:36)
[2020-09-19] MEDS: DOCUSATE SODIUM 100 MG CAPSULE PO SCH (19:57)
[2020-09-19] MEDS: SENNOSIDES 1 TABLET PO SCH (19:58)
[2020-09-19] MEDS: CHLORHEXIDINE GLUCONATE 1 ML ORAL.SOL SWABMOUTH SCH (20:32)
--- NOTE | 2020-09-19 20:40 | EKG ---
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 Measurements Intervals [place] Rate: 131 P: 0 NV: 104 QRS: -58 QRSD: 114 T: 93 QT: 308 QTc: 455 Interpretive Statements SINUS TACHYCARDIA INCOMPLETE RBBB AND LAFB ANTERIOR Q WAVES, POSSIBLY DUE TO LVH NO PRIOR TRACING FOR COMPARISON ABNORMAL ECG Electronically Signed On 09-19-2020 20:39:39 PDT by Kain Macario M.D. /store/[email or web address]/[id number]
[2020-09-19] MEDS: ONDANSETRON 4 MG/2 ML VIAL IV PRN (20:54)
[2020-09-19] MEDS ORDERED: ZOLPIDEM 5 MG TABLET PO PRN ×2 (21:00)
[2020-09-19] MEDS ORDERED: SENNOSIDES 1 TABLET PO SCH (21:00)
[2020-09-19] MEDS: LORazepam 2 MG/ML VIAL IV PRN (23:41)
[2020-09-20] MEDS: ONDANSETRON 4 MG/2 ML VIAL IV PRN (01:35)
[2020-09-20] MEDS: 0.9 % SODIUM CHLORIDE 250 ML IV SCH ×3 (01:56→15:08)
[2020-09-20] MEDS: LORazepam 2 MG/ML VIAL IV PRN ×2 (02:12→03:28)
[2020-09-20] MEDS: 0.9 % SODIUM CHLORIDE 10 ML SYRINGE IV SCH ×3 (05:58→21:22)
[2020-09-20 06:20] LABS: Basophils # (Auto) 0.01 K/mcL (0.00-0.30); Basophils % (Auto) 0.1 % (0.0-2.0); Eosinophils # (Auto) 0 K/mcL (0.00-0.70); Eosinophils % (Auto) 0 % (0.0-7.0); Hemoglobin 13.1 g/dL (13.7-17.5); Lymphocytes # (Auto) 0.68 K/mcL (1.50-4.80); Lymphocytes % (Auto) 4.2 % (15.5-49.0); Mean Cell Volume 86.8 fL (80.0-100.0); Mean Corpuscular HGB Conc 34.5 g/dL (31.0-36.0); Mean Platelet Volume 10.6 fL (7.4-10.4); Monocytes # (Auto) 1.21 K/mcL (0.10-0.90); Monocytes % (Auto) 7.5 % (1.0-12.0); Neutrophils % (Auto) 88.2 % (38.0-78.0); Platelet Count 289 K/mcL (140-440); RBC 4.38 M/mcL (4.63-6.08); Red Cell Distribution Width 13.2 % (11.5-14.5); WBC 16.1 K/mcL (4.5-11.0)
[2020-09-20 06:41] LABS: ALT/SGPT 17 U/L (<40); AST/SGOT 55 U/L (<40); Albumin 3.5 gm/dL (3.2-5.2); Albumin/Globulin Ratio 1.1 (1.0-2.3); Alkaline Phosphatase 97 U/L (39-117); Bilirubin,Direct < 0.2 mg/dL (0-0.3); Bilirubin,Total 0.3 mg/dL (0.1-1.0); Blood Urea Nitrogen 28 mg/dL (8-23); Calcium 9.3 mg/dL (8.6-10.4); Carbon Dioxide 24 mmol/L (22-30); Chloride 105 mmol/L (96-108); Globulin 3.2 gm/dL (2.2-3.7); Glomerular Filtration Rate 59; Glucose 136 mg/dL (70-105); Lactate Dehydrogenase 213 U/L (135-225); Phosphorous 3.2 mg/dL (2.5-4.5); Triglycerides 87 mg/dL (<150); Uric Acid 7.1 mg/dL (2.5-8.0)
--- NOTE | 2020-09-20 06:47 | XRay Report ---
INDICATION: mechanical ventilation TECHNIQUE: AP portable upright chest x-ray COMPARISON: Chest CT scan dated 09/19/2020 and chest x-ray dated 09/19/2020 FINDINGS:Endotracheal tube tip at the thoracic inlet. Esophagogastric tube in the stomach Lungs:Mild bibasilar pulmonary parenchymal density consistent with volume loss and possible pneumonia. Appearance is unchanged. Heart, vascular:No significant cardiomegaly. Pulmonary vascularity is normal. No pulmonary edema or pulmonary congestion Mediastinum, santos:No mediastinal widening. No hilar mass Pleura:Probable small bilateral pleural effusions Skeletal:Negative. IMPRESSION: 1. Mild bibasilar parenchymal density and very small effusions 2. No interval change Interpreted and Authenticated by: Patrick Lawrence 09/20/20
[2020-09-20] MEDS: DEXMEDETOMIDINE 400 MCG in PREMIX 1 BAG IV SCH ×2 (06:51→22:31)
[2020-09-20] MEDS: INSULIN LISPRO 1 UNIT/0.01 ML UNIT SQ SCH ×4 (07:25→21:22)
[2020-09-20] MEDS ORDERED: OMEPRAZOLE 20 MG CAPSULE PO SCH ×2 (07:30)
[2020-09-20] MEDS: cefTRIAXone 2 GM in DEXTROSE 5% IN WATER 50 ML IV SCH (08:47)
[2020-09-20] MEDS: DOCUSATE SODIUM 100 MG CAPSULE PO SCH ×2 (08:48→21:09)
[2020-09-20] MEDS: ENOXAPARIN 40 MG/0.4 ML SYRINGE SQ SCH (08:57)
[2020-09-20] MEDS: INSULIN GLARGINE, HUMAN 1 UNIT/0.01 ML SQ SCH (08:57)
[2020-09-20] MEDS: CHLORHEXIDINE GLUCONATE 1 ML ORAL.SOL SWABMOUTH SCH ×2 (09:06→21:23)
[2020-09-20] MEDS ORDERED: ROCURONIUM 10 MG/ML ML IV ONE (09:40)
[2020-09-20] MEDS ORDERED: 0.9 % SODIUM CHLORIDE 10 ML VIAL IJ ONE (09:40)
[2020-09-20] MEDS: AZITHROMYCIN 500 MG in DEXTROSE 5% IN WATER 250 ML IV SCH (10:26)
[2020-09-20] MEDS ORDERED: 0.9 % SODIUM CHLORIDE 1,000 ML IV ONE (11:52)
[2020-09-20] MEDS: CITALOPRAM 20 MG TABLET PO SCH (13:52)
[2020-09-20] MEDS: 0.9 % SODIUM CHLORIDE 1,000 ML IV SCH (14:48)
--- NOTE | 2020-09-20 15:22 | Internal Med Progress Note ---
SUBJECTIVE Subjective Patient information: Note initiated : 09/20/20 at 3:13 pm Service Date, if different from initiated Date: [] Patient: Jose L Carter a 60 y/o M admitted on 09/19/20 for SOB, tongue swelling. Chief Complaint: [] Interval history: History of present illness: Mr. Carter is a 60 year old M history of type 1 diabetes mellitus, essential hypertension, depressions, presenting with 1 day history of difficulty breathing, lips swelling, and difficulty swallowing. Patient was taking lisinopril for hypertension and he was being diagnosed with angioedema from lisinopril about a month ago. He has not been taking lisinopril or any other DAVE inhibitor ever since. Today when he woke up from sleep he noticed increased difficulty breathing, lip swelling, and difficulty swallowing. As a result, he decided to come to our ED for further evaluation and treatments. Vital signs upon ER presentations were completely normal including oxygen saturation and rate of breathing. Labs, pea-sized slightly elevated blood glucose to 220, were also largely unremarkable. Physical examinations remarkable for airway examination of Mallampati class IV. No drooling noticed. Lung examinations shows clear breath sound in all lung schultz. Mental status intact. 09/19: CT neck with contrast was negative. The patient later developed progressive worsening of respiratory status this morning requiring an intubation by anaesthesia. Anaesthesia remarked that there was no evidence of airway edema noted during intubation, a GlideScope was used for intubation. Post intubation ABG showed severe respiratory acidosis that improved on repeat ABG. Further workup with EKG-sinus tachycardia, troponin-normal, BNP-normal. D-dimer mildly elevated. CTA chest negative for PE but showed bilateral lower lobe consolidations of uncertain etiology but likely benign voluem loss vs pneumonia. Ceftriaxone and Azithromycin started, check procalcitonin and CRP. TTE ordered. 09/20: Ventilating and oxygenating well on VC mode TV 500 RR16, PEEP 5, FiO2 40. Weaned to minimal precedex, communicated with facial expressions and writing on pad, prolonged weaning trial today with pressure support of 10/5, did not tolerate pressure support of 8/5. Will resume VC mode this afternoon, consider extubation tomorrow with anaesthesia backup support if patient is able to tolerate weaning trial. Review of systems: shortness of breath Physical Exam Head: Atraumatic, normal inspection. Eyes: normal appearance, no scleral icterus. Neck: full ROM Respiratory: mechanical ventilation Cardiovascular: regular rate GI/Abdominal: soft, nontender, no guarding. Extremities: full range of motion, nontender. Neurological: CN II-XII intact, intact motor, intact sensation. Psychiatric: severe anxiety Skin: warm, normal color Constitutional Vitals: Vital Signs Temp Pulse Resp BP Pulse Ox 97.8 F 63 15 112/73 97 09/20/20 12:01 09/20/20 14:01 09/20/20 14:01 09/20/20 14:01 09/20/20 14:01 Period Temp Pulse Resp BP Sys/Sewell Pulse Ox Last 24 Hr 97.1 F-98.4 F 51-111 13-27 81-159/43-107 92-100 Intake and Output 09/20/20 09/20/20 09/20/20 05:59 13:59 21:59 Intake Total 222 399 290 Output Total 324 205 300 Balance -102 194 -10 Weight 95.708 kg Patient Weight 09/21/20 05:59 Weight 95.708 kg Intake & Output: Intake & Output 09/20/20 09/20/20 09/20/20 05:59 13:59 21:59 Intake Total 222 399 290 Output Total 324 205 300 Balance -102 194 -10 Weight 95.708 kg Intake: IV 222 399 290 Sodium Chloride 0.9% 250 ml @ 219 250 20 mls/hr IV .[id number] JOY Rx#: [id number] Zithromax 500 mg In Dextrose 5% 250 in Water 250 ml @ 250 mls/hr IV DAILY@1000 JOY Rx#:[id number] Precedex 400 Mcg/100 ml 3 99 Dextrose 400 Mcg In Premix 1 Bag @ 0.2 MCG/KG/HR 4.992 mls/ hr IV .Q20H2M JOY Rx#:[id number] Levophed 8 mg In Sodium 0 40 Chloride 0.9% 242 ml @ 10 MCG/ MIN 18.75 mls/hr IV Q14H PRN Rx #:[id number] Rocephin 2 gm In Dextrose 5% in 50 Water 50 ml @ 100 mls/hr IV DAILY JOY Rx#:[id number] Output: Gastric Drainage 300 Oral NG/OG 300 Urine Catheter Amount 324 205 0 Other: Urine Appearance Clear Clear Urine Color Pale Dark Yellow OBJ DATA Labs CBC & Chem 7: 09/20/20 05:09 09/20/20 05:09 Labs: Abnormal Lab Results 09/20/20 09/20/20 09/19/20 05:09 05:09 10:21 WBC 16.1 H RBC 4.38 L Hgb 13.1 L Hct 38.0 L MPV 10.6 H Neut % (Auto) 88.2 H Lymph % (Auto) 4.2 L Lymph # (Auto) 0.68 L [place] # (Auto) 1.21 H Absolute Neutrophils 14.20 H D-Dimer Carbon Dioxide Anion Gap BUN 28 H Creatinine 1.3 H Glucose 136 H Hemoglobin A1c AST 55 H Alkaline Phosphatase C-Reactive Protein Procalcitonin 0.54 H 09/19/20 09/19/20 09/19/20 10:21 10:21 10:21 WBC 16.1 H RBC Hgb Hct MPV Neut % (Auto) 87.9 H Lymph % (Auto) 8.2 L Lymph # (Auto) 1.32 L [place] # (Auto) Absolute Neutrophils 14.13 H D-Dimer Carbon Dioxide 15 L Anion Gap 21.0 H BUN Creatinine Glucose 347 H Hemoglobin A1c AST Alkaline Phosphatase 122 H C-Reactive Protein 1.50 H Procalcitonin 09/19/20 09/18/20 09/18/20 10:21 08:50 08:50 WBC RBC Hgb Hct MPV Neut % (Auto) Lymph % (Auto) Lymph # (Auto) [place] # (Auto) Absolute Neutrophils D-Dimer 0.68 H Carbon Dioxide Anion Gap BUN Creatinine Glucose 220 H Hemoglobin A1c 6.6 H AST Alkaline Phosphatase C-Reactive Protein Procalcitonin Meds: Medications Acetaminophen (Acetaminophen 325 Mg Tablet) 650 mg PO Q6HP PRN; Protocol PRN Reason: Per Pain Protocol/Fever > 101 Chlorhexidine Gluconate (Chlorhexidine Gluconate 1 Ml Oral.Chiqui) 15 ml [place] BID [facility] Last Admin: 09/20/20 09:06 Dose: 15 ml Documented by: Citalopram Hydrobromide (Citalopram 20 Mg Tablet) 20 mg PO DAILY [facility] Last Admin: 09/20/20 13:52 Dose: 20 mg Documented by: Dextrose (Dextrose 50% 50 Ml Vial) 0 ml IV UD PRN PRN Reason: Hypoglycemia Diagnostic Test (Pha) (Accu-Chek 1 Each Strip) 1 each FS ACHS [facility] Last Admin: 09/20/20 11:40 Dose: 1 each Documented by: Docusate Sodium (Docusate Sodium 100 Mg Capsule) 100 mg PO BID [facility] Last Admin: 09/20/20 08:48 Dose: Not Given Documented by: Enoxaparin Sodium (Enoxaparin 40 Mg/0.4 Ml Syringe) 40 mg SQ DAILY [facility] Last Admin: 09/20/20 08:57 Dose: 40 mg Documented by: Fentanyl (Fentanyl 100 Mcg/2 Ml Vial) 25 mcg IV Q30MIN PRN; Protocol PRN Reason: pain Last Admin: 09/19/20 23:41 Dose: 25 mcg Documented by: Glucose (Dextrose 31 Gm Oral.Susp) 15 gm PO PRN PRN PRN Reason: Hypoglycemia Norepinephrine Bitartrate 8 mg (/ Sodium Chloride) 250 mls @ 18.75 mls/hr IV Q14H PRN; Protocol PRN Reason: TITRATE TO KEEP MAP > 65 Last Titration: 09/20/20 15:05 Dose: 0 mcg/min, 0 mls/hr Documented by: Dexmedetomidine HCl 400 mcg/ (Premix) 100 mls @ 4.992 mls/hr IV .Q20H2M [facility]; Protocol Last Titration: 09/20/20 13:30 Dose: 0.2 mcg/kg/hr, 4.992 mls/hr Documented by: Ceftriaxone Sodium 2 gm/ (Dextrose) 50 mls @ 100 mls/hr IV DAILY [facility]; Protocol Stop: 09/23/20 09:29 Last Infusion: 09/20/20 09:17 Dose: Infused Documented by: Azithromycin 500 mg/ Dextrose 250 mls @ 250 mls/hr IV DAILY@1000 [facility]Y; Protocol Stop: 09/21/20 10:59 Last Infusion: 09/20/20 11:26 Dose: Infused Documented by: Sodium Chloride (Sodium Chloride 0.9%) 250 mls @ 20 mls/hr IV .[id number] [facility] Last Admin: 09/20/20 15:08 Dose: 20 mls/hr Documented by: Sodium Chloride (Sodium Chloride 0.9%) 1,000 mls @ 50 mls/hr IV .Q20H [facility] Last Admin: 09/20/20 14:48 Dose: 50 mls/hr Documented by: Sodium Chloride (Sodium Chloride 0.9%) 250 mls @ 20 mls/hr IV .[id number] [facility] Last Admin: 09/20/20 13:32 Dose: 20 mls/hr Documented by: Insulin Glargine (Insulin Glargine, Human 1 Unit/0.01 Ml) 40 unit SQ DAILY [facility] Last Admin: 09/20/20 08:57 Dose: 40 unit Documented by: Insulin Human Lispro (Insulin Lispro 1 Unit/0.01 Ml Unit) 0 unit SQ ACHS [facility]; Protocol Last Admin: 09/20/20 11:40 Dose: 4 unit Documented by: Labetalol HCl (Labetalol 5 Mg/Ml Ml) 10 mg IV Q10M PRN PRN Reason: SBP>190 Lorazepam (Lorazepam 2 Mg/Ml Vial) 0.5 mg IV Q1HP PRN PRN Reason: ANXIETY/SEDATION Last Admin: 09/20/20 03:28 Dose: 0.5 mg Documented by: Omeprazole (Omeprazole 20 Mg Capsule) 40 mg PO ACB [facility] Last Admin: 09/20/20 07:42 Dose: Not Given Documented by: Ondansetron HCl (Ondansetron 4 Mg/2 Ml Vial) 4 mg IV Q6HP PRN PRN Reason: Nausea And Vomiting Last Admin: 09/20/20 01:35 Dose: 4 mg Documented by: Senna (Sennosides 1 Tablet) 2 tab PO HS [facility] Last Admin: 09/19/20 19:58 Dose: Not Given Documented by: Sodium Chloride (0.9 % Sodium Chloride 10 Ml Syringe) 10 ml IV Q8 [facility] Last Admin: 09/20/20 13:52 Dose: Not Given Documented by: Zolpidem Tartrate (Zolpidem 5 Mg Tablet) 5 mg PO HSP PRN PRN Reason: Insomnia A/P Narrative A/P Narrative: Assessment: 60 year old M history of type 1 diabetes mellitus, essential hypertension, depressions, presented with progressively worsening difficulty breathing, lips swelling, and difficulty swallowing. Initially felt to be angioedema as the patient was taking lisinopril but had not taken it for about a month. The patient was was admitted on 09/18 and started on IV steroids, benadryl and given FFP but continued to worsen and requiring intubation on 09/19. No evidence of airway edema noted by anaesthesia during intubation with a GlideScope. CT neck w/ contrast was also negative for airway edema or masses compressing on upper airway. CTA chest negative for PE, bilateral lower lobe consolidations of uncertain etiology. ABG showed respiratory acidosis. #Hypercapnic respiratory failure #Bilateral lower lobe consolidations-atelectasis vs pneumonia #Concern for possible neuromuscular disease #Regional wall motion abnormalities on ECHO #Essential hypertension #Type 1 diabetes mellitus #Depression Plan -Mechanical ventilation, precedex, Fentanyl, Ativan as needed. -Daily ABGs, labs, and chest xrays while on mechanical ventilation. -Myasthenia Gravis panel pending. -Ceftriaxone and Azithromycin. -Nutrition consult for tube feeding. -Discontinue Solumedrol and Benadryl. -Levophed as needed. -threat monitoring analyst. -Consider transfer to higher level of care. -DVT ppx: Lovenox -GI ppx: PPI -Code status: [employer] Support Planner Spent With Patient Time: Total time spent is greater than 50% in coordination of care (as documented) at patient's floor/unit and/or counseling patient: QUALITY Stroke Symptom Onset Unknown: No VTE Deep Vein Thrombosis/Pulmonary Embolism Present on Admission: No
[2020-09-20] MEDS: NOREPINEPHRINE BITARTRATE 8 MG in 0.9 % SODIUM CHLORIDE 242 ML IV PRN (16:34)
[2020-09-20] MEDS: DEXTROSE 50% 50 ML VIAL IV PRN (16:41)
[2020-09-20 16:46] LABS: Prealbumin 16.9 mg/dL (20.0-40.0)
[2020-09-20] MEDS: SENNOSIDES 1 TABLET PO SCH (21:09)
[2020-09-21] MEDS: LORazepam 2 MG/ML VIAL IV PRN ×5 (00:12→20:33)
[2020-09-21] MEDS: ONDANSETRON 4 MG/2 ML VIAL IV PRN ×2 (01:01→07:39)
[2020-09-21] MEDS: 0.9 % SODIUM CHLORIDE 250 ML IV SCH ×4 (03:17→17:28)
[2020-09-21] MEDS: DEXMEDETOMIDINE 400 MCG in PREMIX 1 BAG IV SCH (05:03)
[2020-09-21] MEDS: 0.9 % SODIUM CHLORIDE 10 ML SYRINGE IV SCH ×3 (06:02→21:34)
[2020-09-21 06:45] LABS: Basophils # (Auto) 0 K/mcL (0.00-0.30); Basophils % (Auto) 0 % (0.0-2.0); Eosinophils # (Auto) 0 K/mcL (0.00-0.70); Eosinophils % (Auto) 0 % (0.0-7.0); Hematocrit 39.4 % (40.1-51.0); Lymphocytes # (Auto) 1.02 K/mcL (1.50-4.80); Lymphocytes % (Auto) 10.5 % (15.5-49.0); Mean Cell Volume 91.2 fL (80.0-100.0); Mean Platelet Volume 10.7 fL (7.4-10.4); Monocytes # (Auto) 0.81 K/mcL (0.10-0.90); Monocytes % (Auto) 8.3 % (1.0-12.0); Neutrophils % (Auto) 81.2 % (38.0-78.0); Platelet Count 181 K/mcL (140-440); RBC 4.32 M/mcL (4.63-6.08); Red Cell Distribution Width 13.3 % (11.5-14.5); WBC 9.8 K/mcL (4.5-11.0)
[2020-09-21 06:59] LABS: ALT/SGPT 21 U/L (<40); AST/SGOT 38 U/L (<40); Albumin 3.1 gm/dL (3.2-5.2); Albumin/Globulin Ratio 1.1 (1.0-2.3); Alkaline Phosphatase 86 U/L (39-117); Bilirubin,Direct < 0.2 mg/dL (0-0.3); Bilirubin,Total 0.4 mg/dL (0.1-1.0); Blood Urea Nitrogen 25 mg/dL (8-23); Calcium 8.9 mg/dL (8.6-10.4); Carbon Dioxide 21 mmol/L (22-30); Chloride 107 mmol/L (96-108); Globulin 2.9 gm/dL (2.2-3.7); Glomerular Filtration Rate 92; Glucose 206 mg/dL (70-105); Lactate Dehydrogenase 227 U/L (135-225); Phosphorous 1.9 mg/dL (2.5-4.5); Triglycerides 133 mg/dL (<150); Uric Acid 5.7 mg/dL (2.5-8.0)
[2020-09-21] MEDS ORDERED: PANTOPRAZOLE 40 MG VIAL IV SCH (07:30)
--- NOTE | 2020-09-21 08:20 | XRay Report ---
HISTORY: Intubated, short of breath, tongue swelling FINDINGS: The endotracheal tube remains well-positioned in the midthoracic trachea. The nasogastric tube has been pulled back into the mid thoracic esophagus. There is no widening of the mediastinum or pneumothorax. There are persistent bands of atelectasis in both lung bases which remain stable. Mid and upper lung schultz are clear. The heart size is normal. IMPRESSION: Stable bibasilar atelectasis Interpreted and Authenticated by: Yung Eubanks 09/21/20
[2020-09-21] MEDS: INSULIN GLARGINE, HUMAN 1 UNIT/0.01 ML SQ SCH (08:40)
[2020-09-21] MEDS: CITALOPRAM 20 MG TABLET PO SCH (08:40)
[2020-09-21] MEDS: cefTRIAXone 2 GM in DEXTROSE 5% IN WATER 50 ML IV SCH (08:40)
[2020-09-21] MEDS: ENOXAPARIN 40 MG/0.4 ML SYRINGE SQ SCH (08:40)
[2020-09-21] MEDS: DOCUSATE SODIUM 100 MG CAPSULE PO SCH ×2 (08:41→20:38)
[2020-09-21] MEDS: CHLORHEXIDINE GLUCONATE 1 ML ORAL.SOL SWABMOUTH SCH ×2 (08:41→21:33)
[2020-09-21] MEDS: INSULIN LISPRO 1 UNIT/0.01 ML UNIT SQ SCH ×4 (08:41→21:33)
[2020-09-21] MEDS: 0.9 % SODIUM CHLORIDE 1,000 ML IV SCH (11:21)
[2020-09-21] MEDS: AZITHROMYCIN 500 MG in DEXTROSE 5% IN WATER 250 ML IV SCH (11:21)
[2020-09-21] MEDS ORDERED: ONDANSETRON 4 MG/2 ML VIAL IV PRN (11:33)
[2020-09-21] MEDS ORDERED: METOCLOPRAMIDE 10 MG/2 ML VIAL IV PRN (11:33)
--- NOTE | 2020-09-21 13:05 | Internal Med Progress Note ---
SUBJECTIVE Subjective Patient information: Note initiated : 09/21/20 at 12:58 pm Service Date, if different from initiated Date: [] Patient: Jose L Carter a 60 y/o M admitted on 09/19/20 for SOB, tongue swelling. Chief Complaint: [] Interval history: History of present illness: Mr. Carter is a 60 year old M history of type 1 diabetes mellitus, essential hypertension, depressions, presenting with 1 day history of difficulty breathing, lips swelling, and difficulty swallowing. Patient was taking lisinopril for hypertension and he was being diagnosed with angioedema from lisinopril about a month ago. He has not been taking lisinopril or any other DAVE inhibitor ever since. Today when he woke up from sleep he noticed increased difficulty breathing, lip swelling, and difficulty swallowing. As a result, he decided to come to our ED for further evaluation and treatments. Vital signs upon ER presentations were completely normal including oxygen saturation and rate of breathing. Labs, pea-sized slightly elevated blood glucose to 220, were also largely unremarkable. Physical examinations remarkable for airway examination of Mallampati class IV. No drooling noticed. Lung examinations shows clear breath sound in all lung schultz. Mental status intact. 09/19: CT neck with contrast was negative. The patient later developed progressive worsening of respiratory status this morning requiring an intubation by anaesthesia. Anaesthesia remarked that there was no evidence of airway edema noted during intubation, a GlideScope was used for intubation. Post intubation ABG showed severe respiratory acidosis that improved on repeat ABG. Further workup with EKG-sinus tachycardia, troponin-normal, BNP-normal. D-dimer mildly elevated. CTA chest negative for PE but showed bilateral lower lobe consolidations of uncertain etiology but likely benign voluem loss vs pneumonia. Ceftriaxone and Azithromycin started, check procalcitonin and CRP. TTE ordered. 09/20: Ventilating and oxygenating well on VC mode TV 500 RR16, PEEP 5, FiO2 40. Weaned to minimal precedex, communicated with facial expressions and writing on pad, prolonged weaning trial today with pressure support of 10/5, did not tolerate pressure support of 8/5. Will resume VC mode this afternoon, consider extubation tomorrow with anaesthesia backup support if patient is able to tolerate weaning trial. 09/21: Extubated to BiPAP today after tolerating pressure support with a RSBI that predicted successful extubation. Negative inspiratory pressure before extubation was 23 and 24 on subsequent attempt. Myasthenia gravis panel pending. Will keep in ICU for monitoring, wean BiPAP as tolerated. Discontinued IV fluid. Physical Exam Head: Atraumatic, normal inspection. Eyes: normal appearance, no scleral icterus. Neck: full ROM Respiratory: on BiPAP, no respiratory distress Cardiovascular: regular rate GI/Abdominal: soft, nontender, no guarding. Extremities: full range of motion, nontender. Neurological: CN II-XII intact, intact motor, intact sensation. Psychiatric: severe anxiety Skin: warm, normal color Constitutional Vitals: Vital Signs Temp Pulse Resp BP Pulse Ox 97.2 F 48 L 22 126/67 99 09/21/20 10:59 09/21/20 12:33 09/21/20 12:33 09/21/20 12:01 09/21/20 12:33 Period Temp Pulse Resp BP Sys/Sewell Pulse Ox Last 24 Hr 96 F-98.2 F 39-65 12-22 82-137/54-84 87-99 Intake and Output 09/20/20 09/21/20 09/21/20 21:59 05:59 13:59 Intake Total 4417 489 9433 Output Total 486 515 205 Balance 643 876 3133 Weight 98.203 kg Intake & Output: Intake & Output 09/20/20 09/21/20 09/21/20 21:59 05:59 13:59 Intake Total 8145 858 1470 Output Total 486 515 205 Balance 396 254 5267 Weight 98.203 kg Intake: IV 5229 350 1307 Sodium Chloride 0.9% 1,000 ml @ 1000 1000 50 mls/hr IV .Q20H JOY Rx#: [id number] Sodium Chloride 0.9% 250 ml @ 250 500 20 mls/hr IV .[id number] JOY Rx#: [id number] Precedex 400 Mcg/100 ml 34 17 64 Dextrose 400 Mcg In Premix 1 Bag @ 0.2 MCG/KG/HR 4.992 mls/ hr IV .Q20H2M JOY Rx#:[id number] Levophed 8 mg In Sodium 45 Chloride 0.9% 242 ml @ 10 MCG/ MIN 18.75 mls/hr IV Q14H PRN Rx #:[id number] Rocephin 2 gm In Dextrose 5% in 50 Water 50 ml @ 100 mls/hr IV DAILY [facility] Rx#:[id number] Oral 0 Tube Feeding 0 270 301 GI Tube Flush 80 160 80 Output: Gastric Drainage 300 Oral NG/OG 300 Urine Catheter Amount 186 515 205 Other: Urine Appearance Clear Clear Clear Urine Color Pale Pale Urine Odor Normal OBJ DATA Labs CBC & Chem 7: 09/21/20 05:10 09/21/20 05:10 Labs: Abnormal Lab Results 09/21/20 09/21/20 09/20/20 05:10 05:10 15:48 WBC RBC 4.32 L Hgb 13.0 L Hct 39.4 L MPV 10.7 H Neut % (Auto) 81.2 H Lymph % (Auto) 10.5 L Lymph # (Auto) 1.02 L [place] # (Auto) Absolute Neutrophils D-Dimer Carbon Dioxide 21 L Anion Gap BUN 25 H Creatinine Glucose 206 H Hemoglobin A1c Phosphorus 1.9 L AST Alkaline Phosphatase Lactate Dehydrogenase 227 H C-Reactive Protein Albumin 3.1 L Prealbumin 16.9 L Procalcitonin 09/20/20 09/20/20 09/19/20 05:09 05:09 10:21 WBC 16.1 H RBC 4.38 L Hgb 13.1 L Hct 38.0 L MPV 10.6 H Neut % (Auto) 88.2 H Lymph % (Auto) 4.2 L Lymph # (Auto) 0.68 L Cost[place] # (Auto) 1.21 H Absolute Neutrophils 14.20 H D-Dimer Carbon Dioxide Anion Gap BUN 28 H Creatinine 1.3 H Glucose 136 H Hemoglobin A1c Phosphorus AST 55 H Alkaline Phosphatase Lactate Dehydrogenase C-Reactive Protein Albumin Prealbumin Procalcitonin 0.54 H 09/19/20 09/19/20 09/19/20 10:21 10:21 10:21 WBC 16.1 H RBC Hgb Hct MPV Neut % (Auto) 87.9 H Lymph % (Auto) 8.2 L Lymph # (Auto) 1.32 L [place] # (Auto) Absolute Neutrophils 14.13 H D-Dimer Carbon Dioxide 15 L Anion Gap 21.0 H BUN Creatinine Glucose 347 H Hemoglobin A1c Phosphorus AST Alkaline Phosphatase 122 H Lactate Dehydrogenase C-Reactive Protein 1.50 H Albumin Prealbumin Procalcitonin 09/19/20 09/18/20 10:21 08:50 WBC RBC Hgb Hct MPV Neut % (Auto) Lymph % (Auto) Lymph # (Auto) Cost[place] # (Auto) Absolute Neutrophils D-Dimer 0.68 H Carbon Dioxide Anion Gap BUN Creatinine Glucose Hemoglobin A1c 6.6 H Phosphorus AST Alkaline Phosphatase Lactate Dehydrogenase C-Reactive Protein Albumin Prealbumin Procalcitonin Meds: Medications Acetaminophen (Acetaminophen 325 Mg Tablet) 650 mg PO Q6HP PRN; Protocol PRN Reason: Per Pain Protocol/Fever > 101 Chlorhexidine Gluconate (Chlorhexidine Gluconate 1 Ml Oral.Chiqui) 15 ml SWABMOUTH BID [facility] Last Admin: 09/21/20 08:41 Dose: 15 ml Documented by: Citalopram Hydrobromide (Citalopram 20 Mg Tablet) 20 mg PO DAILY [facility] Last Admin: 09/21/20 08:40 Dose: 20 mg Documented by: Dextrose (Dextrose 50% 50 Ml Vial) 0 ml IV UD PRN PRN Reason: Hypoglycemia Last Admin: 09/20/20 16:41 Dose: 50 ml Documented by: Diagnostic Test (Pha) (Accu-Chek 1 Each Strip) 1 each FS ACHS [facility] Last Admin: 09/21/20 11:53 Dose: 1 each Documented by: Docusate Sodium (Docusate Sodium 100 Mg Capsule) 100 mg PO BID [facility] Last Admin: 09/21/20 08:41 Dose: Not Given Documented by: Enoxaparin Sodium (Enoxaparin 40 Mg/0.4 Ml Syringe) 40 mg SQ DAILY [facility] Last Admin: 09/21/20 08:40 Dose: 40 mg Documented by: Fentanyl (Fentanyl 100 Mcg/2 Ml Vial) 25 mcg IV Q30MIN PRN; Protocol PRN Reason: pain Last Admin: 09/19/20 23:41 Dose: 25 mcg Documented by: Glucose (Dextrose 31 Gm Oral.Susp) 15 gm PO PRN PRN PRN Reason: Hypoglycemia Norepinephrine Bitartrate 8 mg (/ Sodium Chloride) 250 mls @ 18.75 mls/hr IV Q14H PRN; Protocol PRN Reason: TITRATE TO KEEP MAP > 65 Last Titration: 09/20/20 17:00 Dose: 0 mcg/min, 0 mls/hr Documented by: Dexmedetomidine HCl 400 mcg/ (Premix) 100 mls @ 4.992 mls/hr IV .Q20H2M [facility]; Protocol Last Titration: 09/21/20 10:10 Dose: 0 mcg/kg/hr, 0 mls/hr Documented by: Ceftriaxone Sodium 2 gm/ (Dextrose) 50 mls @ 100 mls/hr IV DAILY [facility]; Protocol Stop: 09/23/20 09:29 Last Infusion: 09/21/20 11:53 Dose: Infused Documented by: Sodium Chloride (Sodium Chloride 0.9%) 250 mls @ 20 mls/hr IV .[id number] [facility] Last Admin: 09/21/20 05:32 Dose: 20 mls/hr Documented by: Sodium Chloride (Sodium Chloride 0.9%) 250 mls @ 20 mls/hr IV .[id number] [facility] Last Admin: 09/21/20 03:17 Dose: 20 mls/hr Documented by: Insulin Glargine (Insulin Glargine, Human 1 Unit/0.01 Ml) 40 unit SQ DAILY [facility] Last Admin: 09/21/20 08:40 Dose: 40 unit Documented by: Insulin Human Lispro (Insulin Lispro 1 Unit/0.01 Ml Unit) 0 unit SQ ACHS [facility]; Protocol Last Admin: 09/21/20 08:41 Dose: 8 unit Documented by: Labetalol HCl (Labetalol 5 Mg/Ml Ml) 10 mg IV Q10M PRN PRN Reason: SBP>190 Lorazepam (Lorazepam 2 Mg/Ml Vial) 0.5 mg IV Q1HP PRN PRN Reason: ANXIETY/SEDATION Last Admin: 09/21/20 11:48 Dose: 0.5 mg Documented by: Metoclopramide HCl (Metoclopramide 10 Mg/2 Ml Vial) 10 mg IV Q6HP PRN PRN Reason: Nausea And Vomiting Ondansetron HCl (Ondansetron 4 Mg/2 Ml Vial) 4 mg IV Q4H PRN PRN Reason: Nausea And Vomiting Last Admin: 09/21/20 11:48 Dose: 4 mg Documented by: Pantoprazole Sodium (Pantoprazole 40 Mg Vial) 40 mg IV QAMAC [facility] Last Admin: 09/21/20 07:10 Dose: 40 mg Documented by: Senna (Sennosides 1 Tablet) 2 tab PO HS [facility] Last Admin: 09/20/20 21:09 Dose: Not Given Documented by: Sodium Chloride (0.9 % Sodium Chloride 10 Ml Syringe) 10 ml IV Q8 [facility] Last Admin: 09/21/20 06:02 Dose: 10 ml Documented by: Zolpidem Tartrate (Zolpidem 5 Mg Tablet) 5 mg PO HSP PRN PRN Reason: Insomnia A/P Narrative A/P Narrative: Assessment: 60 year old M history of type 1 diabetes mellitus, essential hypertension, depressions, presented with progressively worsening difficulty breathing, lips swelling, and difficulty swallowing. Initially felt to be angioedema as the patient was taking lisinopril but had not taken it for about a month. The patient was was admitted on 09/18 and started on IV steroids, benadryl and given FFP but continued to worsen and requiring intubation on 09/19. No evidence of airway edema noted by anaesthesia during intubation with a GlideScope. CT neck w/ contrast was also negative for airway edema or masses compressing on upper airway. CTA chest negative for PE, bilateral lower lobe consolidations of uncertain etiology. ABG showed respiratory acidosis. #Hypercapnic respiratory failure-resolved #Bilateral lower lobe consolidations-atelectasis vs pneumonia #Low negative inspiratory pressure of -24 #Concern for possible neuromuscular disease #Regional wall motion abnormalities on ECHO w/ LVEF 40-45% #Essential hypertension #Type 1 diabetes mellitus #Depression #GERD Plan -BiPAP, monitor respiratory status in ICU. -Myasthenia Gravis panel pending. -Ceftriaxone and Azithromycin. -Follow procalcitonin tomorrow. -Follow urine metanephrines and catecholamine results. -Daily labs. -Consider pulmonology consult -ballast inspector. -DVT ppx: Lovenox -Code status: Candles Pourer Spent With Patient Time: Total time spent is greater than 50% in coordination of care (as mani shepherd) at patient's floor/unit and/or counseling patient: QUALITY Stroke Symptom Onset Unknown: No VTE Deep Vein Thrombosis/Pulmonary Embolism Present on Admission: No
[2020-09-21] MEDS ORDERED: ACETAMINOPHEN 500 MG TABLET PO PRN (13:40)
[2020-09-21] MEDS ORDERED: ATROPINE SULFATE 0.4 MG/ML VIAL IV PRN (19:59)
--- NOTE | 2020-09-21 20:34 | EKG ---
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 Measurements Intervals [place] Rate: 46 P: 35 IL: 120 QRS: 80 QRSD: 112 T: 118 QT: 500 QTc: 438 Interpretive Statements SINUS BRADYCARDIA INCOMPLETE RIGHT BUNDLE BRANCH BLOCK Since previous ECG of 09-19-2020, NO LAD,NO LASB NO PRIOR TRACING FOR COMPARISON ABNORMAL ECG Electronically Signed On 09-21-2020 20:33:41 PDT by Kain Macario M.D. /store/M0/[id number]/[id number]
[2020-09-21] MEDS: SENNOSIDES 1 TABLET PO SCH (20:38)
[2020-09-21] MEDS: DEXTROSE 50% 50 ML VIAL IV PRN (21:34)
[2020-09-21] MEDS ORDERED: GLYCOPYRROLATE 0.2 MG/ML VIAL IV PRN (21:35)
[2020-09-22] MEDS: 0.9 % SODIUM CHLORIDE 10 ML SYRINGE IV SCH ×3 (05:42→20:26)
[2020-09-22 06:48] LABS: Basophils # (Auto) 0.01 K/mcL (0.00-0.30); Basophils % (Auto) 0.1 % (0.0-2.0); Eosinophils # (Auto) 0.01 K/mcL (0.00-0.70); Eosinophils % (Auto) 0.1 % (0.0-7.0); Hematocrit 40.4 % (40.1-51.0); Hemoglobin 13.3 g/dL (13.7-17.5); Lymphocytes # (Auto) 0.97 K/mcL (1.50-4.80); Lymphocytes % (Auto) 10.6 % (15.5-49.0); Mean Cell Volume 88.2 fL (80.0-100.0); Mean Corpuscular HGB Conc 32.9 g/dL (31.0-36.0); Mean Platelet Volume 10.4 fL (7.4-10.4); Monocytes # (Auto) 0.77 K/mcL (0.10-0.90); Monocytes % (Auto) 8.4 % (1.0-12.0); Neutrophils % (Auto) 80.8 % (38.0-78.0); Platelet Count 189 K/mcL (140-440); RBC 4.58 M/mcL (4.63-6.08); Red Cell Distribution Width 13.2 % (11.5-14.5); WBC 9.2 K/mcL (4.5-11.0)
[2020-09-22] MEDS: DEXTROSE 50% 50 ML VIAL IV PRN ×2 (07:00→08:34)
[2020-09-22] MEDS: INSULIN LISPRO 1 UNIT/0.01 ML UNIT SQ SCH ×4 (07:16→20:25)
[2020-09-22 07:26] LABS: Creatine Kinase 140 U/L (24-195); Thyroid Stimulating Hormone 19.95 uIU/mL (0.27-5.01)
[2020-09-22] MEDS ORDERED: OMEPRAZOLE 20 MG CAPSULE PO SCH (07:30)
[2020-09-22] MEDS ORDERED: LEVOTHYROXINE 100 MCG VIAL IV SCH (07:30)
[2020-09-22 07:43] LABS: ALT/SGPT 21 U/L (<40); AST/SGOT 25 U/L (<40); Albumin 3.2 gm/dL (3.2-5.2); Albumin/Globulin Ratio 1.1 (1.0-2.3); Alkaline Phosphatase 96 U/L (39-117); Bilirubin,Direct < 0.2 mg/dL (0-0.3); Bilirubin,Total 0.5 mg/dL (0.1-1.0); Blood Urea Nitrogen 18 mg/dL (8-23); Calcium 9.1 mg/dL (8.6-10.4); Carbon Dioxide 24 mmol/L (22-30); Chloride 111 mmol/L (96-108); Globulin 2.8 gm/dL (2.2-3.7); Glomerular Filtration Rate 92; Glucose 39 mg/dL (70-105); Lactate Dehydrogenase 221 U/L (135-225); Phosphorous 2.8 mg/dL (2.5-4.5); Triglycerides 117 mg/dL (<150); Uric Acid 4.8 mg/dL (2.5-8.0)
[2020-09-22] MEDS ORDERED: DEXTROSE 5% IN WATER 1,000 ML IV SCH (08:00)
[2020-09-22] MEDS ORDERED: INSULIN GLARGINE, HUMAN 1 UNIT/0.01 ML SQ SCH (09:00)
[2020-09-22] MEDS: DOCUSATE SODIUM 100 MG CAPSULE PO SCH ×2 (09:33→20:20)
[2020-09-22] MEDS: cefTRIAXone 2 GM in DEXTROSE 5% IN WATER 50 ML IV SCH (10:20)
[2020-09-22] MEDS: CHLORHEXIDINE GLUCONATE 1 ML ORAL.SOL SWABMOUTH SCH (10:20)
[2020-09-22] MEDS: ENOXAPARIN 40 MG/0.4 ML SYRINGE SQ SCH (10:21)
--- NOTE | 2020-09-22 10:21 | Consultation ---
DATE OF CONSULTATION: 09/22/2020 HISTORY OF PRESENT ILLNESS: The patient is a pleasant 60-year-old gentleman initially seen in the emergency room on 09/18/2020 with a chief complaint of difficulty with breathing and speech. The patient apparently had been having some question of difficulty with angioedema secondary to lisinopril, which had been stopped approximately a month prior. His son is present at the bedside and the patient is in the ICU on bilevel therapy. The son indicates issues or difficulties with speech. I never find in the record any mention of stridor, and I never find any mention in the record of the visible swelling of laryngeal or oral structures. The patient provides a history of feeling like he was ''weak.'' He describes more so major muscle groups, such as lifting things. 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 He denies issues with finer motor skills. There may have been some dysphagia as well. After being seen initially in the emergency room, he had additional workup, which included a CT of the chest, which showed bibasilar atelectasis and infiltrates. He had a normal white count on presentation and received Solu-Medrol at 125 mg and subsequently had elevated white count. He had an elevated calcitonin and that and his white count and his radiographic infiltrate in the chest raised the probability of a pneumonitis and the decision was made to empirically start antibiotics with Rocephin and azithromycin. The patient had a respiratory deterioration and was intubated for a period of time. He was extubated to bilevel therapy earlier today. A series of arterial blood gases from 09/19/2020 to 09/21/2020 would indicate that the patient experienced a significant hypoventilatory respiratory arrest with the worst blood gas being a PaCO2 of 55, a pH of 7.21, and this was on an FiO2 I believe of about 40%. The patient was intubated by Anesthesia, and it is my understanding that the remarks of Anesthesia were that there was no significant edema of the upper airway structures at the time of that intubation. The patient has a remote smoking history, but other detailed history from the patient given his distress is difficult. REVIEW OF SYSTEMS: Systems review is without clear additional abnormality. PHYSICAL EXAMINATION: GENERAL: The patient has a bilevel mask on, but is able to talk. He has just had an endotracheal tube removed and his voice is impaired of possible multiple etiologies. He attempts to cough and appears to not have much ability to close his glottis to obtain pressure and huffs more than coughs. Again, this is of possible multiple etiologies. HEAD: Atraumatic, normocephalic. EYES: EOMI. NECK: Supple. LUNGS: Decreased breath sounds in all lung schultz with scattered rhonchus and decreased lung sounds in the bases. HEART: Regular S1, S2. No apparent gallop, rub, jugular venous distention, or edema. ABDOMEN: Soft. Bowel sounds are present and decreased. BONES, JOINTS AND EXTREMITIES: Intact without acute changes. NEUROLOGIC: No apparent fasciculations in the arms or legs at this time, but perhaps a degree of respiratory muscle weakness. Again, in this setting difficult to ascertain etiology. LABORATORY DATA: Laboratory data is as discussed above as well as imaging. He did have a normal white count on presentation, which elevated to 15,000 after Solu-Medrol and has been trending down since institution of antibiotics. The patient has additional information this morning. He was seen in consultation on the evening of 09/21/2020 and appears to be hypothyroid with an elevated TSH and a low free T4. Although this could certainly contribute to respiratory muscle weakness and other difficulties, it seems unlikely to be the explanation of his speech issues. ASSESSMENT: I have seen two cases in my 40 years of practice where amyotrophic lateral sclerosis presented with a more central diaphragmatic and speech and bulbar presentation. That would be my most serious concern. Certainly workup for myasthenia gravis and continued evaluation regarding the possibility of an angioedema would be prudent as well as taking care of his hypothyroid state. Hopefully the patient will be able to ventilate on his own, but needs to be monitored closely in that regard as the patient has a hypoventilatory respiratory failure of uncertain etiology at this time. Agree with current management and treatment plan. Please call with additional questions. We will follow with you. Thank you for the opportunity to participate in the care of this seriously ill gentleman. LUIS E:iqra Job ID: [id number] Doc ID: [id number] MD FREEDOM Ashraf
[2020-09-22] MEDS ORDERED: ETOMIDATE 20 MG/10 ML VIAL IV ONE ×2 (11:19→11:28)
[2020-09-22] MEDS ORDERED: MIDAZOLAM 5 MG/5 ML VIAL IV ONE ×2 (11:20→11:32)
[2020-09-22] MEDS: fentaNYL 100 MCG/2 ML VIAL IV PRN ×3 (11:35→15:08)
[2020-09-22] MEDS ORDERED: fentaNYL 100 MCG/2 ML VIAL IV ONE (11:37)
[2020-09-22] MEDS: DEXMEDETOMIDINE 400 MCG in PREMIX 1 BAG IV SCH ×4 (11:49→22:44)
[2020-09-22] MEDS: CITALOPRAM 20 MG TABLET PO SCH (11:50)
--- NOTE | 2020-09-22 11:57 | XRay Report ---
History: Repositioned endotracheal tube Endotracheal tube is well-positioned 4 cm above the rhonda. There is a nasogastric tube which extends to the left lung base, within the left lower lobe bronchus. Moderate atelectasis or pneumonia is present in the basilar segments of both lower lobes. There is blunting of the left costophrenic sulcus. No pneumothorax is present. IMPRESSION: Well-positioned endotracheal tube Abnormal placement of the nasogastric tube in the left lower lobe Stable atelectasis or pneumonia in both lower lobes ICU was called with report Interpreted and Authenticated by: Yung Eubanks 09/22/20
--- NOTE | 2020-09-22 12:05 | XRay Report ---
HISTORY: Repositioned nasogastric tube FINDINGS: Nasogastric tube has been pulled out of the lung then reinserted. The tip is now located in the fundus of the stomach pointing towards the left side of the abdomen. The sidehole is at the level of the gastroesophageal junction. The stomach is decompressed. The bowel pattern is normal. IMPRESSION: Well-positioned nasogastric tube in the fundus of the stomach. It could be advanced a few more centimeters to allow the sidehole to be located within the lumen of the stomach. Interpreted and Authenticated by: Yung Eubanks 09/22/20
[2020-09-22] MEDS: LORazepam 2 MG/ML VIAL IV PRN ×4 (13:00→16:09)
[2020-09-22 13:18] LABS: Blood Urea Nitrogen 15 mg/dL (8-23); Calcium 8.4 mg/dL (8.6-10.4); Carbon Dioxide 25 mmol/L (22-30); Chloride 109 mmol/L (96-108); Glomerular Filtration Rate 92; Glucose 154 mg/dL (70-105)
[2020-09-22] MEDS: PYRIDOSTIGMINE 60 MG TABLET PO SCH ×2 (13:50→17:17)
--- NOTE | 2020-09-22 13:52 | Emergency Department Note ---
HPI General Chief complaint: Shortness of Breath/Dyspnea Stated complaint: SOB, tongue swelling Time Seen by Provider: 09/18/20 08:10 Source: patient Mode of arrival: wheelchair Limitations: no limitations History of Present Illness HPI Narrative: Narrative: Called by hospitalist to intubate patient in respiratory distress in the ICU Related Data Home Medications Medication Instructions Recorded Confirmed citalopram 20 mg PO DAILY 09/18/20 09/18/20 insulin aspart U-100 [Novolog See Protocol SUBCUT ACHS 09/18/20 09/18/20 U-100 Insulin aspart] insulin glargine [Lantus Solostar 35 unit SUBCUT DAILY 09/18/20 09/18/20 U-100 Insulin] omeprazole 40 mg PO DAILY 09/18/20 09/18/20 Allergies Allergy/AdvReac Type Severity Reaction Status Date / Time lisinopril AdvReac Severe Swelling Verified 09/18/20 07:52 Review of Systems ROS ROS Narrative: Narrative: ENT ED: Reports throat pain (With swallowing.) and dysphagia; Denies ear pain and rhinorrhea Respiratory: Reports shortness of breath Psychiatric: Reports depression Allergic/Immunologic: Reports facial swelling PFSH Narrative Patient History Narrative: Narrative: Medical/Surgical/Family History All Active Problems Compromised airway (Acute) Depression (Acute) Essential (primary) hypertension (Acute) Type 1 diabetes mellitus (Acute) 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 Having difficulty to continue breathing secondary to secretions. General Limitations: no limitations Course Vital Signs Vital signs: Vital Signs Temperature 97.4 F 09/18/20 07:53 Pulse Rate 96 H 09/18/20 07:53 Respiratory Rate 18 09/18/20 07:53 Blood Pressure 156/85 09/18/20 07:53 Pulse Oximetry (%) 96 09/18/20 07:53 Temperature 97.0 F 09/22/20 07:02 Pulse Rate 63 09/22/20 13:01 Respiratory Rate 16 09/22/20 13:04 Blood Pressure 128/85 09/22/20 13:01 Pulse Oximetry (%) 97 09/22/20 13:04 MDM MDM Narrative Medical decision making narrative: Narrative: Lab Data Result diagrams: 09/22/20 05:25 09/22/20 12:10 Labs: Lab Results 09/18/20 09/18/20 09/18/20 Range/Units 08:50 08:50 08:50 WBC 6.6 (4.5-11.0) K/mcL RBC 4.86 (4.50-5.90) M/mcL Hgb 14.5 (13.5-16.5) g/dL Hct 42.2 (41.0-55.0) % MCV 86.8 (80.0-100.0) fL MCH 29.8 (26.0-34.0) pg MCHC 34.4 (31.0-36.0) g/dL RDW 12.8 (11.5-14.5) % Plt Count 242 (140-440) K/mcL MPV 10.1 (7.4-10.4) fL Neut % (Auto) 64.7 (38.0-78.0) % Lymph % (Auto) 24.0 (15.0-49.0) % Perry % (Auto) 7.4 (1.0-12.0) % Eos % (Auto) 3.3 (0.0-7.0) % Baso % (Auto) 0.6 (0.0-2.0) % Lymph # (Auto) 1.59 (1.50-4.80) K/mcL Perry # (Auto) 0.49 (0.10-0.90) K/mcL Eos # (Auto) 0.22 (0.00-0.70) K/mcL Baso # (Auto) 0.04 (0.00-0.20) K/mcL Absolute Neutrophils 4.28 (1.80-8.00) K/mcL Sodium 138 (133-145) mmol/L Potassium 4.7 (3.3-5.1) mmol/L Chloride 104 (96-108) mmol/L Carbon Dioxide 23 (22-30) mmol/L Anion Gap 11.0 (8.0-16.0) BUN 8 (8-23) mg/dL Creatinine 1.0 (0.7-1.2) mg/dL GFR Calculation 81 Glucose 220 H (70-105) mg/dL Hemoglobin A1c 6.6 H (4.0-6.0) % Hgb Estim Average Glucose 143 mg/dL Calcium 9.2 (8.6-10.4) mg/dL Total Bilirubin 0.5 (0.1-1.0) mg/dL AST 24 (<40) U/L ALT 19 (<40) U/L Alkaline Phosphatase 113 (39-117) U/L Total Protein 6.9 (5.9-8.4) gm/dL Albumin 3.5 (3.2-5.2) gm/dL Globulin 3.4 (2.2-3.7) gm/dL Albumin/Globulin Ratio 1.0 (1.0-2.3) ED POC Tests ED POC Tests: BRANDO - SARS Antigen Negative Procedures Intubation sedative: Etomidate (20) Laryngoscope: fiber optic video scope ET Tube Size: 7.5 ET Tube Uncuffed: Yes Tube Secured Depth (cm): 24 Tube Secured Location: teeth Tube Placement Confirmation: visualized tube passing through cords, equal breath sounds bilaterally, no breath sounds over epigastrium and confirmation by capnometry Patient Tolerated Procedure: well Intubation Complications: none Discharge Plan Patient/Caregiver Discharge Instructions Pt seen by GROUP WORKER/PA only: No Clinical Impression: Compromised airway Patient Disposition: Xfer As Inpt ([facility]) Condition: Serious Discharge Date/Time: 09/18/20 12:09
--- NOTE | 2020-09-22 15:43 | Internal Med Progress Note ---
SUBJECTIVE Subjective Patient information: Note initiated : 09/22/20 at 3:38 pm Service Date, if different from initiated Date: [] Patient: Jose L Carter a 60 y/o M admitted on 09/19/20 for SOB, tongue swelling. Chief Complaint: [] Interval history: History of present illness: Mr. Carter is a 60 year old M history of type 1 diabetes mellitus, essential hypertension, depressions, presenting with 1 day history of difficulty breathing, lips swelling, and difficulty swallowing. Patient was taking lisinopril for hypertension and he was being diagnosed with angioedema from lisinopril about a month ago. He has not been taking lisinopril or any other DAVE inhibitor ever since. Today when he woke up from sleep he noticed increased difficulty breathing, lip swelling, and difficulty swallowing. As a result, he decided to come to our ED for further evaluation and treatments. Vital signs upon ER presentations were completely normal including oxygen saturation and rate of breathing. Labs, pea-sized slightly elevated blood glucose to 220, were also largely unremarkable. Physical examinations remarkable for airway examination of Mallampati class IV. No drooling noticed. Lung examinations shows clear breath sound in all lung schultz. Mental status intact. 09/19: CT neck with contrast was negative. The patient later developed progressive worsening of respiratory status this morning requiring an intubation by anaesthesia. Anaesthesia remarked that there was no evidence of airway edema noted during intubation, a GlideScope was used for intubation. Post intubation ABG showed severe respiratory acidosis that improved on repeat ABG. Further workup with EKG-sinus tachycardia, troponin-normal, BNP-normal. D-dimer mildly elevated. CTA chest negative for PE but showed bilateral lower lobe consolidations of uncertain etiology but likely benign voluem loss vs pneumonia. Ceftriaxone and Azithromycin started, check procalcitonin and CRP. TTE ordered. 09/20: Ventilating and oxygenating well on VC mode TV 500 RR16, PEEP 5, FiO2 40. Weaned to minimal precedex, communicated with facial expressions and writing on pad, prolonged weaning trial today with pressure support of 10/5, did not tolerate pressure support of 8/5. Will resume VC mode this afternoon, consider extubation tomorrow with anaesthesia backup support if patient is able to tolerate weaning trial. 09/21: Extubated to BiPAP today after tolerating pressure support with a RSBI that predicted successful extubation. Negative inspiratory pressure before extubation was 23 and 24 on subsequent attempt. Myasthenia gravis panel pending. Will keep in ICU for monitoring, wean BiPAP as tolerated. Discontinued IV fluid. 09/22: Difficulty clearing secretions today and progressively worsened dyspnea, the patient was reintubated late morning and started back on volume control mode with previous settings which the patient tolerated well on a low rate of precedex infusino and fentanyl prn. Lab work showed hypothyroidism with elevated TSH about 20 and low free T4-started Levothyroxine IV. Hypernatremia resolved with D5 IV, NG replaced after intubation and will resume tube feeds. Decreased Lantus for hypoglycemia early this morning. Myasthenia Gravis panel still pending. Discussed the patient with neurology at [facility], neurology recommending a trial of Pyridostigmine for possible Myasthenia Gravis. Pyridostigmine trial started. Will start looking into transfer to an intensive care unit where neurology consult is available. Physical Exam Head: Atraumatic, normal inspection. Eyes: normal appearance, no scleral icterus. Neck: full ROM Respiratory: intubated and on mechanical ventilatino, no respiratory distress Cardiovascular: regular rate GI/Abdominal: NG present, soft, nontender, no guarding. : kerr catheter Extremities: full range of motion, nontender. Neurological: CN II-XII intact, intact motor, intact sensation. Psychiatric: severe anxiety Skin: warm, normal color Constitutional Vitals: Vital Signs Temp Pulse Resp BP Pulse Ox 97.0 F 54 L 15 121/80 100 09/22/20 07:02 09/22/20 15:01 09/22/20 15:01 09/22/20 15:01 09/22/20 15:01 Period Temp Pulse Resp BP Sys/Sewell Pulse Ox Last 24 Hr 97.0 F-98.2 F 54-107 8-30 101-143/56-95 91-100 Intake and Output 09/22/20 09/22/20 09/22/20 05:59 13:59 21:59 Intake Total 1061 17 Output Total 990 515 20 Balance -990 546 -3 Intake & Output: Intake & Output 09/22/20 09/22/20 09/22/20 05:59 13:59 21:59 Intake Total 1061 17 Output Total 990 515 20 Balance -990 546 -3 Intake: IV 1061 17 Sodium Chloride 0.9% 1,000 ml @ 1000 50 mls/hr IV .Q20H [facility] Rx#: [id number] Precedex 400 Mcg/100 ml 11 17 Dextrose 400 Mcg In Premix 1 Bag @ 0.2 MCG/KG/HR 5.06 mls/hr IV .[id number] [facility] Rx#:[id number] Levophed 8 mg In Sodium 0 Chloride 0.9% 242 ml @ 10 MCG/ MIN 18.75 mls/hr IV Q14H PRN Rx #:[id number] Rocephin 2 gm In Dextrose 5% in 50 Water 50 ml @ 100 mls/hr IV DAILY [facility] Rx#:[id number] Output: Urine Catheter Amount 990 515 20 Other: Urine Appearance Clear Clear Clear Urine Color Pale Dark Yellow Dark Yellow Urine Odor Normal Normal OBJ DATA Labs CBC & Chem 7: 09/22/20 05:25 09/22/20 12:10 Labs: Abnormal Lab Results 09/22/20 09/22/20 09/22/20 12:10 05:25 05:25 WBC RBC 4.58 L Hgb 13.3 L Hct MPV Neut % (Auto) 80.8 H Lymph % (Auto) 10.6 L Lymph # (Auto) 0.97 L [place] # (Auto) Absolute Neutrophils Sodium 149 H Chloride 109 H 111 H Carbon Dioxide BUN Creatinine Glucose 154 H 39 L* Calcium 8.4 L Phosphorus AST Lactate Dehydrogenase Albumin Prealbumin Procalcitonin TSH Free T4 09/22/20 09/22/20 09/22/20 05:24 05:24 05:24 WBC RBC Hgb Hct MPV Neut % (Auto) Lymph % (Auto) Lymph # (Auto) [place]y # (Auto) Absolute Neutrophils Sodium Chloride Carbon Dioxide BUN Creatinine Glucose Calcium Phosphorus AST Lactate Dehydrogenase Albumin Prealbumin Procalcitonin 0.18 H TSH 19.95 H Free T4 0.70 L 09/21/20 09/21/20 09/20/20 05:10 05:10 15:48 WBC RBC 4.32 L Hgb 13.0 L Hct 39.4 L MPV 10.7 H Neut % (Auto) 81.2 H Lymph % (Auto) 10.5 L Lymph # (Auto) 1.02 L Emery # (Auto) Absolute Neutrophils Sodium Chloride Carbon Dioxide 21 L BUN 25 H Creatinine Glucose 206 H Calcium Phosphorus 1.9 L AST Lactate Dehydrogenase 227 H Albumin 3.1 L Prealbumin 16.9 L Procalcitonin TSH Free T4 09/20/20 09/20/20 09/19/20 05:09 05:09 10:21 WBC 16.1 H RBC 4.38 L Hgb 13.1 L Hct 38.0 L MPV 10.6 H Neut % (Auto) 88.2 H Lymph % (Auto) 4.2 L Lymph # (Auto) 0.68 L Emery # (Auto) 1.21 H Absolute Neutrophils 14.20 H Sodium Chloride Carbon Dioxide BUN 28 H Creatinine 1.3 H Glucose 136 H Calcium Phosphorus AST 55 H Lactate Dehydrogenase Albumin Prealbumin Procalcitonin 0.54 H TSH Free T4 Meds: Medications Acetaminophen (Acetaminophen 325 Mg Tablet) 650 mg PO Q6HP PRN; Protocol PRN Reason: Per Pain Protocol/Fever > 101 Chlorhexidine Gluconate (Chlorhexidine Gluconate 1 Ml Oral.Chiqui) 15 ml SWABMOUTH BID [facility] Last Admin: 09/22/20 10:20 Dose: 15 ml Documented by: Chlorhexidine Gluconate (Chlorhexidine Gluconate 1 Ml Oral.Chiqui) 15 ml SWABMOUTH BID [facility] Citalopram Hydrobromide (Citalopram 20 Mg Tablet) 20 mg PO DAILY [facility] Last Admin: 09/22/20 11:50 Dose: Not Given Documented by: Dextrose (Dextrose 50% 50 Ml Vial) 0 ml IV UD PRN PRN Reason: Hypoglycemia Last Admin: 09/22/20 08:34 Dose: 25 ml Documented by: Diagnostic Test (Pha) (Accu-Chek 1 Each Strip) 1 each FS ACHS [facility] Last Admin: 09/22/20 14:15 Dose: 1 each Documented by: Docusate Sodium (Docusate Sodium 100 Mg Capsule) 100 mg PO BID [facility] Last Admin: 09/22/20 09:33 Dose: Not Given Documented by: Fentanyl (Fentanyl 100 Mcg/2 Ml Vial) 50 mcg IV Q30M PRN; Protocol PRN Reason: Per Pain Protocol Last Admin: 09/22/20 15:08 Dose: 50 mcg Documented by: Glucose (Dextrose 31 Gm Oral.Susp) 15 gm PO PRN PRN PRN Reason: Hypoglycemia Ceftriaxone Sodium 2 gm/ (Dextrose) 50 mls @ 100 mls/hr IV DAILY [facility]; Protocol Stop: 09/23/20 09:29 Last Infusion: 09/22/20 12:00 Dose: Infused Documented by: Dexmedetomidine HCl 400 mcg/ (Premix) 100 mls @ 5.06 mls/hr IV .[id number] [facility]; Protocol Last Titration: 09/22/20 14:14 Dose: 0.8 mcg/kg/hr, 20.239 mls/hr Documented by: Insulin Glargine (Insulin Glargine, Human 1 Unit/0.01 Ml) 20 unit SQ DAILY [facility] Last Admin: 09/22/20 10:20 Dose: 20 unit Documented by: Insulin Human Lispro (Insulin Lispro 1 Unit/0.01 Ml Unit) 0 unit SQ [facility]; Protocol Last Admin: 09/22/20 11:57 Dose: Not Given Documented by: Labetalol HCl (Labetalol 5 Mg/Ml Ml) 10 mg IV Q10M PRN PRN Reason: SBP>190 Levothyroxine Sodium (Levothyroxine 100 Mcg Vial) 125 mcg IV QAMAC [facility] Last Admin: 09/22/20 10:19 Dose: 125 mcg Documented by: Lorazepam (Lorazepam 2 Mg/Ml Vial) 0.5 mg IV Q1HP PRN PRN Reason: ANXIETY/SEDATION Last Admin: 09/22/20 14:31 Dose: 0.5 mg Documented by: Metoclopramide HCl (Metoclopramide 10 Mg/2 Ml Vial) 10 mg IV Q6HP PRN PRN Reason: Nausea And Vomiting Ondansetron HCl (Ondansetron 4 Mg/2 Ml Vial) 4 mg IV Q4H PRN PRN Reason: Nausea And Vomiting Last Admin: 09/21/20 11:48 Dose: 4 mg Documented by: Pantoprazole Sodium (Pantoprazole 40 Mg Vial) 40 mg IV BIDAC [facility] Pyridostigmine [place] (Pyridostigmine 60 Mg Tablet) 60 mg PO QID [facility] Last Admin: 09/22/20 13:50 Dose: 60 mg Documented by: Senna (Sennosides 1 Tablet) 2 tab PO HS [facility] Last Admin: 09/21/20 20:38 Dose: Not Given Documented by: Sodium Chloride (0.9 % Sodium Chloride 10 Ml Syringe) 10 ml IV Q8 [facility] Last Admin: 09/22/20 13:51 Dose: 10 ml Documented by: A/P Narrative A/P Narrative: Assessment: 60 year old M history of type 1 diabetes mellitus, essential hypertension, depressions, presented with progressively worsening difficulty breathing, lips swelling, and difficulty swallowing. Initially felt to be angioedema as the patient was taking lisinopril but had not taken it for about a month. The patient was was admitted on 09/18 and started on IV steroids, benadryl and given FFP but continued to worsen and requiring intubation on 09/19. No evidence of airway edema noted by anaesthesia during intubation with a Gl ideScope. CT neck w/ contrast was also negative for airway edema or masses compressing on upper airway. CTA chest negative for PE, bilateral lower lobe consolidations of uncertain etiology. ABG showed respiratory acidosis. #Concern for bulbar dysfunction and inability to manage oral secretions #Concern for possible neuromuscular disease #Progressive proximal extremity weakness for approximately 3 months #Airway protection with endotracheal tube #Bilateral lower lobe consolidations-atelectasis vs aspiration pneumonia #Regional wall motion abnormalities on ECHO w/ LVEF 40-45% #Hypothyroidism-new diagnosis #Resolved hypernatremia #Essential hypertension #Type 1 Diabetes mellitus #Depression #GERD Plan -Intubated for airway protection. -Mechanical ventilation management, precedex, fentanyl, ativan prn. -Trial of Pyridostigmine, consider IVIG if improvement noted. -Myasthenia Gravis panel pending. -Complete possible pneumonia treatment with Ceftriaxone x5 days. -Levothyroxine IV daily. -Decrease Lantus to 20 units daily, continue SSI-med. -Daily labs. -Consider MRI brain. -Pulmonology consulted. -Nutrition following for tube feeding. -Follow urine metanephrines and catecholamine results. -quality assurance monitor final. 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
[2020-09-22] MEDS ORDERED: PANTOPRAZOLE 40 MG VIAL IV SCH (17:00)
--- NOTE | 2020-09-22 19:45 | Discharge Summary ---
Discharge Provider Provider Patient information: Note initiated : 09/22/20 at 7:40 pm Service Date, if different from initiated Date: [] Patient: Jose L Carter 60 y/o M admitted on 09/19/20 for SOB, tongue swelling. Chief Complaint: [] Date of admission: 09/19/20 06:55 Discharge date: 09/22/20 Primary care physician: Nacho Light Consults: 09/18/20 Consult to Physician [CONS] Stat Comment: Consulting Provider: Uche Worrell Reason For Exam: Physician to Consult Consult to Physician [CONS] Stat Comment: Hospitalist Consulting Provider: Sreekanth Chavarria Reason For Exam: Physician to Consult 09/21/20 18:47 Consult to Physician [CONS] Routine Comment: Consulting Provider: Al Miller Reason For Exam: Physician to Consult Discharge Meds Discharge Medications Home Medications Lantus Solostar U-100 Insulin 35 unit SUBCUT DAILY 09/18/20 [History Confirmed 09/18/20 Last Taken 09/17/20 16:00 35 units] citalopram 20 mg PO DAILY 09/18/20 [History Confirmed 09/18/20 Last Taken 09/17/20 16:00 20 mg] insulin aspart U-100 [Novolog U-100 Insulin aspart] See Protocol SUBCUT ACHS 09/18/20 [History Confirmed 09/18/20 Last Taken Unknown] omeprazole 40 mg PO DAILY 09/18/20 [History Confirmed 09/18/20 Last Taken 09/17/20 16:00 40 mg] COURSE Hospital Course Hospital course: Mr. Carter is a 60 year old M history of type 1 diabetes mellitus, essential hypertension, depressions, presenting with 1 day history of difficulty breathing and difficulty swallowing. The patient was taking lisinopril for hypertension and felt to have angioedema from lisinopril about a month ago. He has not been taking lisinopril or any other DAVE inhibitor ever since. On the day of admission he awoke up from sleep he noticed increased d ifficulty breathing, difficulty swallowing, and a sensation of lip edema. As a result, he decided to come to our ED for further evaluation and treatments. Vital signs upon Ed presentation were completely normal including oxygen saturation and rate of breathing. Labs revealed an elevated blood glucose of 220. Physical examinations remarkable for airway examination of Mallampati class IV. No drooling noticed. Lung examinations shows clear breath sound in all lung schultz. Mental status intact. The patient was admitted and started on Solumedrol, Benadryl, and given 2 units of fresh frozen plasma for possible DAVE Inhibitor induced angioedema. 09/19: Ordered a CT neck with contrast that was negative for mass or evidence of airway edema. The patient's respiratory status progressively worsened to the point of extreme dyspnea. Anaesthesia was called to the ICU to intubate the patient. Anaesthesia later remarked that there was no evidence of airway edema noted during intubation, a GlideScope was used for intubation. Post intubation ABG showed severe respiratory acidosis that improved on repeat ABGs after increasing respiratory rate. Further workup with EKG-sinus tachycardia, troponin -normal, BNP-normal. D-dimer mildly elevated. CTA chest negative for PE but showed bilateral lower lobe consolidations of uncertain etiology but probably atelectasis vs pneumonia. Ceftriaxone and Azithromycin started, check procalcitonin and CRP. TTE ordered. Procalcitonin was .54, CRP only 1.5. suspect the patient aspirated. Stat ECHO ordered. 09/20:The patient is ventilating and oxygenating well on VC mode TV 500 RR16, PEEP 5, FiO2 40. Weaned to minimal precedex, communicated with facial expressions and writing on pad, prolonged weaning trial today with pressure support of 5 on a PEEP of 5. Negative inspiratory pressure before extubation was 23 and 24 on subsequent attempt. Resumed VC mode in the afternoon. Updated family. 09/21: Extubated to BiPAP today after tolerating pressure support with a RSBI less than 50. Ordered Myasthenia gravis panel, send out workup. The patient thinks he aspirated on 09/19/20 and that caused his respiratory decline. Will keep on BiPAP and plan to wean slowly as tolerated. Discontinued IV fluid. Overnight the patient had difficulty with oral secretions requiring frequent suctioning, one dose of Atopine IV given which helped decrease secretions. ECHO interpreted by outside cardiology group-LVEF 40-45% with apical hypokinesis, this is a new finding will need to be looked into when the patient is more stable. 09/22: More difficulty managing secretions today, weak cough and progressively worsening dyspnea requiring reintubated late morning. Started back on volume control mode with previous settings which the patient tolerated well on a low rate of precedex infusion and fentanyl prn and ativan prn. Lab work showed hypothyroidism with elevated TSH about 20 and low free T4-started Levothyroxine IV. CK level was normal. Hypernatremia resolved with D5 IV, NG replaced after intubation and will resume tube feeds. Decreased Lantus for hypoglycemia early this morning. Myasthenia Gravis panel still pending. Repeat procalcitonin .18, day 4 of Ceftriaxone for possible aspiration pneumonia. Discussed the patient with neurology at [facility] in [place]. Neurology recommending a trial of Pyridostigmine or IVIG for possible Myasthenia Gravis. Pyridostigmine trial started as we do not have IVIG currently available. Will start looking into transfer to an intensive care unit where neurology consult is available. Later discussed with neurology at [facility] and was recommended to start IVIG but recommended against Pyridostigmine at this time. Pyridostigmine discontinued. Will plan on MRI brain with contrast and lumbar puncture tomorrow morning. Later received word that [facility] has an ICU bed available. 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 Calvin at [facility] who accepted the patient. Updated the patient and his son, Moncho. Moncho plans to go to [place] to be with his father. The patient was discharged to [facility]. He will be transported by aircraft. Follow up at [facility]; -Admit to ICU for ventilator management. -Consult neurology for bulbar dysfunction in the setting of about 3 months of progressive weakness. -Consider completing Ceftriaxone for 5 days for possible aspiration pneumonia- started on 09/19, received 4 doses before discharge. -Follow up pending Myasthenia Gravis panel-send out lab (will take awhile for results to be available). -Consider cardiology workup when more stable for LVEF 40-45% with apical regional wall motion abnormalities. Physical Exam Head: Atraumatic, normal inspection. Eyes: normal appearance, no scleral icterus. Neck: full ROM Respiratory: intubated and on mechanical ventilation, no respiratory distress Cardiovascular: regular rate GI/Abdominal: NG present, soft, nontender, no guarding. : kerr catheter Extremities: full range of motion, nontender. Neurological: CN II-XII intact, intact motor, intact sensation. Psychiatric: severe anxiety Skin: warm, normal color Discharge diagnosis: Inability to manage oral secretions Secondary discharge diagnosis: #Concern for bulbar dysfunction and inability to manage oral secretions #Concern for possible neuromuscular disease #Progressive proximal extremity weakness for approximately 3 months #Airway protection with endotracheal tube #Bilateral lower lobe consolidations-atelectasis vs aspiration pneumonia #Regional wall motion abnormalities on ECHO w/ LVEF 40-45% #Hypothyroidism-new diagnosis #Resolved hypernatremia #Essential hypertension #Type 1 Diabetes mellitus #Depression #GERD Time Spent with Patient Time attestation: Total time spent providing and/or coordinating discharge services: EXAM Constitutional Vitals: Temp Pulse Resp BP Pulse Ox 97.0 F 55 L 16 109/80 98 09/22/20 07:02 09/22/20 18:01 09/22/20 19:14 09/22/20 18:01 09/22/20 19:14 Discharge Data Data Completed and Pending Labs on day of discharge: Labs from last 24 hours 09/22/20 09/22/20 09/22/20 12:10 05:25 05:25 WBC 9.2 RBC 4.58 L Hgb 13.3 L Hct 40.4 MCV 88.2 MCH 29.0 MCHC 32.9 RDW 13.2 Plt Count 189 MPV 10.4 Neut % (Auto) 80.8 H Lymph % (Auto) 10.6 L [place] % (Auto) 8.4 Eos % (Auto) 0.1 Baso % (Auto) 0.1 Lymph # (Auto) 0.97 L [place] # (Auto) 0.77 Eos # (Auto) 0.01 Baso # (Auto) 0.01 Absolute Neutrophils 7.40 Sodium 145 149 H Potassium 3.3 3.4 Chloride 109 H 111 H Carbon Dioxide 25 24 Anion Gap 11.0 14.0 BUN 15 18 Creatinine 0.9 0.9 GFR Calculation 92 92 Glucose 154 H 39 L* Uric Acid 4.8 Calcium 8.4 L 9.1 Phosphorus 2.8 Magnesium 2.2 Total Bilirubin 0.5 Direct Bilirubin < 0.2 GGT 16 AST 25 ALT 21 Alkaline Phosphatase 96 Lactate Dehydrogenase 221 Total Creatine Kinase Total Protein 6.0 Albumin 3.2 Globulin 2.8 Albumin/Globulin Ratio 1.1 Triglycerides 117 Procalcitonin TSH Free T4 09/22/20 09/22/20 09/22/20 05:24 05:24 05:24 WBC RBC Hgb Hct MCV MCH MCHC RDW Plt Count MPV Neut % (Auto) Lymph % (Auto) [place] % (Auto) Eos % (Auto) Baso % (Auto) Lymph # (Auto) [place] # (Auto) Eos # (Auto) Baso # (Auto) Absolute Neutrophils Sodium Potassium Chloride Carbon Dioxide Anion Gap BUN Creatinine GFR Calculation Glucose Uric Acid Calcium Phosphorus Magnesium Total Bilirubin Direct Bilirubin GGT AST ALT Alkaline Phosphatase Lactate Dehydrogenase Total Creatine Kinase 140 Total Protein Albumin Globulin Albumin/Globulin Ratio Triglycerides Procalcitonin 0.18 H TSH 19.95 H Free T4 0.70 L Preliminary micro results at discharge 09/19/20 17:42 Gram Stain - Preliminary Sputum source - Nasal Trachea Suctioned Sputum Culture - Preliminary Discharge Plan Patient/Caregiver Discharge Instructions Activity: increase activity as tolerated Diet: NPO Activity Restrictions/Additional Instructions: Will be staying in the hospital because of the compromised airway and concern of possible acute airway loss. Prescriptions: Continued omeprazole 40 mg capsule,delayed release(DR/EC) 40 mg PO DAILY RF: 0 citalopram 20 mg tablet 20 mg PO DAILY RF: 0 insulin aspart U-100 [Novolog U-100 Insulin aspart] 100 unit/mL solution See Protocol sliding scale dose subcut ACHS RF: 0 Lantus Solostar U-100 Insulin 100 unit/mL (3 mL) insulin pen 35 unit SUBCUT DAILY RF: 0 Follow Up Plan Follow up with: Nacho Light DO [Primary Care Provider] - Patient Disposition: [facility] Prognosis: Serious Overall status at discharge: patient is not back to baseline Discharge Orders: Discharge Order (Routine); Ordered 09/22/20 Ordered By: Sreekanth ZHU VTE Deep Vein Thrombosis/Pulmonary Embolism Present on Admission: No
[2020-09-22] MEDS: SENNOSIDES 1 TABLET PO SCH (20:20)
[2020-09-22] MEDS ORDERED: CHLORHEXIDINE GLUCONATE 1 ML ORAL.SOL SWABMOUTH SCH (21:00)
[2020-09-30 14:31] LABS: Metanephrines 24 Hour,Urine 208 mcg/24 h (90-315); Normetanephrine 24 Hour,Urine 275 mcg/24 h (122-676); Total Metanephrines 24 Hour,Ur 483 mcg/24 h (224-832)
== END 2020-09-22 22:47 | disposition short-term general hospital (02) | DRG 915 ==
LOC: ED 07:51 → MEDSUR 07:51 → ICU 09-19 06:55
PROVIDERS: ADMIT Internal Medicine; ATTEND Internal Medicine